=== PATIENT | female | born 1955 | race Caucasian/White ===

== ENCOUNTER → 2016-08-08 | Outpatient (CLI) | payer BC ==
[~2016-08-08] MED LIST: CALC667C4 PO; CHOL100010 PO; LORA-741 PO; OMEP40CA PO; PRAV20TA PO
== END | disposition home or self-care (01) ==
LOC: C.PAPS 13:45
PROVIDERS: ATTEND Obstetrics & Gynecology
DX: Z01.419 Encounter for gynecological examination (general) (routine) without abnormal findings (principal)

== ENCOUNTER → 2016-08-21 | Outpatient (CLI) | payer BC ==
--- NOTE | 2016-08-21 14:09 | MAMMOGRAPHY REPORT ---
BILATERAL DIGITAL SCREENING MAMMOGRAM WITH CAD: 08/21/2016 CLINICAL HISTORY: Routine screening. Patient has no complaints. TECHNIQUE: Bilateral CC, MLO and repeat right CC views were obtained. Current study was also evalua don with a Computer Aided Detection (CAD) system. COMPARISON: Comparison is made to exams dated: 03/03/2013 mammogram - [facility], mammogram, and 09/17/2010 mammogram. BREAST COMPOSITION: The tissue of both breasts is heterogeneously dense, which may obscure small ma sses. FINDINGS: The parenchymal pattern is unchanged. No developing mass, architectural distortion or clu ster of suspicious microcalcifications is seen in either breast. IMPRESSION: ACR BI-RADS CATEGORY 2: BENIGN There is no mammographic evidence of malignancy. A 1 year screening mammogram is recommended. The p atient will receive written notification of the results. Approximately 10% of breast cancers are not detected with mammography. A negative mammographic repor t should not delay biopsy if a clinically suggestive mass is present. Katelyn Salinas M.D. ay/:08/21/2016 12:12:08 Named Account Executive: Ingrid BAKER(Jennifer)(Sara), [facility] letter sent: Normal 1/2 BI-RADS Code: ACR BI-RADS Category 2: Benign
== END | disposition home or self-care (01) ==
LOC: C.MAMM 10:02
PROVIDERS: ATTEND Family Medicine
DX: Z12.31 Encounter for screening mammogram for malignant neoplasm of breast (principal)

== ENCOUNTER 2024-03-26 07:48 | Inpatient (IN) ==
--- NOTE | 2024-03-04 15:39 | PAT Medication Instructions ---
Medication Instructions Date of Service March 04, 2024 Home Medications cholecalciferol (vitamin D3) 25 mcg (1,000 unit) capsule (Vitamin D3) 50 mcg PO DAILY erenumab-aooe 70 mg/mL subcutaneous auto-injector (Aimovig Autoinjector) 0 mg subcut MONTHLY alendronate 70 mg tablet (Fosamax) 70 mg PO WK ezetimibe 10 mg tablet 10 mg PO QAM gabapentin 300 mg capsule 300 mg PO TID propranolol 10 mg tablet 10 mg PO DAILY PRN sumatriptan 5 mg/actuation nasal spray 5 mg intranasal UD PRN Continue as directed propranolol 10 mg tablet 10 mg PO DAILY PRN(if needed) sumatriptan 5 mg/actuation nasal spray 5 mg intranasal UD PRN(if needed) ASK your prescriber and surgeon erenumab-aooe 70 mg/mL subcutaneous auto-injector (Aimovig Autoinjector) 0 mg subcut MONTHLY DO NOT take the morning of surgery cholecalciferol (vitamin D3) 25 mcg (1,000 unit) capsule (Vitamin D3) 50 mcg PO DAILY alendronate 70 mg tablet (Fosamax) 70 mg PO WK Take morning of surgery With a small sip of water, OTHERWISE NOTHING TO EAT OR DRINK AFTER MIDNIGHT: ezetimibe 10 mg tablet 10 mg PO QAM gabapentin 300 mg capsule 300 mg PO TID Take evening before surgery gabapentin 300 mg capsule 300 mg PO TID Other Notes If you have any questions please call us at [phone] or [phone] or [phone] or [phone]
--- NOTE | 2024-03-12 10:55 | Anesthesiology Consultation ---
Date of Service March 12, 2024 Assessment & Plan (1) Encounter for pre-operative examination: - Infectious disease screening: Per assessment on 03/12/24: No known recent infectious disease contacts or current infectious disease symptoms. - Patient acceptable risk for surgery pending surgeon-ordered PCP preop evaluation (Dr. Hobson, 03/22). Chart Review Chart Review: Patient seen in Pre Admission Testing Teaching & Discussion Pre-Anesthesia Teaching/Discussion Notes: Instructed NPO after midnight before surgery,except medications with 15 cc of water. Medication instructions provided according to the PAT guidelines. History Surgery Operation Date: 03/26/24 07:45 Proposed Procedures p L4-S1 Decompression and Fusion with Spinal Cord Monitoring - David Cota, Height/Weight Height: 5 ft Weight: 59.1 kg Allergies Allergy/AdvReac Type Severity Reaction Status Date / Time erythromycin base Allergy Intermediate Rash Verified 03/10/24 13:11 tetracycline Allergy Intermediate Rash Verified 03/10/24 13:11 [id number]-[id number] Reductase AdvReac Severe Muscle Pain Verified 03/03/24 12:13 Inhibitor gabapentin AdvReac Depression, Verified 03/12/24 11:02 angry Medications Home Medications Medication Instructions Recorded Confirmed Last Taken alendronate 70 mg tablet (Fosamax) 70 mg PO WK 03/03/24 03/03/24 Unknown ezetimibe 10 mg tablet 10 mg PO QAM 03/03/24 03/03/24 Unknown propranolol 10 mg tablet 10 mg PO DAILY PRN Tremor(S) 03/03/24 03/03/24 Unknown sumatriptan 5 mg/actuation nasal 5 mg intranasal UD PRN migraines 03/03/24 03/03/24 Unknown spray cholecalciferol (vitamin D3) 50 50 mcg PO DAILY 03/12/24 03/12/24 Unknown mcg (2,000 unit) capsule (Vitamin D3) erenumab-aooe 140 mg/mL 140 mg subcut MONTHLY 03/12/24 03/12/24 Unknown subcutaneous auto-injector (Aimovig Autoinjector) Past Medical History Medical History Chronic back pain High cholesterol History of indigestion Migraine Exercise / Class Metabolic Activity II 4-5 Yardwork/Stairs/Walk up hill Past Family History Family History Other No family history of adverse response to anesthesia Past Surgical History Surgical History Hx of colonoscopy Hx of laminectomy + discectomy L4-L5 (1995, 1997) Past Anesthesia History No Hx of Anesthesia Complications and No Family Hx of Anesthesia Complications History of PONV No Hx of PONV and No Hx of Motion Sickness Social History Smoking Status: Never smoker Do You Dip or Chew Tobacco: No Hx Alcohol Use: Yes alcohol intake frequency: a few times a month Hx Substance Use: No substance use type: does not use Review of Systems Patient denies chest pain, shortness of breath, dyspnea on exertion, fever, chills, cough, wheezing. Physical Exam Vital Signs BP 105/66 P 70 TEMP 97.8 SP02 99%RA RESP 18 Physical Full cervical extension range of motion. Full TMJ range of motion. TMD 2.5 finger breaths (small chin) Mallampati Score III Dentition: missing teeth (sides/molars), + crowns Lungs: clear throughout to auscultation Cardiac: regular rate and rhythm, no murmurs noted Spine: normal Carotid arteries: negative bruit Extremities: no LE edema Lab Results Anesthesia Preop Results Results Anesthesia Widget: WBC 6.03 K/ul (4.8-10.8) 03/12/24 Hgb 12.9 g/dl (12.0-16.0) 03/12/24 Hct 38.5 % (37.0-47.0) 03/12/24 Plt 291 K/uL (130-400) 03/12/24 Na 137 mmol/L (136-145) 03/12/24 K 4.2 mmol/L (3.5-5.1) 03/12/24 Cl 103 mmol/L (98-107) 03/12/24 CO2 30 mmol/L (21-32) 03/12/24 BUN 16 mg/dl (6-23) 03/12/24 Creat 0.91 mg/dl (0.6-1.2) 03/12/24 Glucose Level 82 mg/dl (70-99(Fasting)) 03/12/24 PT 10.3 Seconds (9.0-12.0) 03/12/24 PTT 24 Seconds (21-31) 03/12/24 INR 0.9 (0.9-1.1) 03/12/24 Urine Color Yellow 03/12/24 Urine Appearance Clear (Clear) 03/12/24 Urine pH 6.5 (4.5-7.5) 03/12/24 Urine Specific [place] 1.006 (1.000-1.030) 03/12/24 Urine Protein Negative (Negative) 03/12/24 Urine Glucose (UA) Negative (Negative) 03/12/24 Urine Ketones Negative (Negative) 03/12/24 Urine Blood Negative (Negative) 03/12/24 Urine Nitrite Negative (Negative) 03/12/24 Urine Bilirubin Negative (Negative) 03/12/24 Urine Urobilinogen Negative (Negative) 03/12/24 Urine Leukocyte Esterase Negative (Negative) 03/12/24 Blood Type A Negative 03/12/24 Antibody Screen NEGATIVE 03/12/24 Testing Electrocardiogram Date: 03/12/24 SB at 53bpm. "Otherwise normal ECG" Chest X-Ray Date: 03/12/24 FINDINGS: Lung volumes are normal. Lungs are clear. There is no pneumothorax or pleural effusion. Cardiac size is normal. Mediastinal contours are normal. There is no evidence for pulmonary edema. IMPRESSION: No acute cardiopulmonary findings.
--- OUTSIDE RECORDS SUMMARY | 2024-03-26 08:10 | External Medical Summary | Continuity of Care Document ---
Author Name Unknown Organization [facility] [id number] [place] [id number] Care Team Providers Care Software Consultant Name Role Phone Charles Hobson Primary Care Physician [phone] Encounter [facility] [id number] Date(s): 03/22/24 - 03/22/24 [facility] [address] [facility] [address] [facility] [address] [place] [address] [phone] Encounter Diagnosis Anxiety(Discharge Diagnosis) - 03/22/24 Preoperative evaluation to rule out surgical contraindication(Discharge Diagnosis) - 03/22/24 Discharge Disposition: Home or Self Care Attending Physician: MD Hobson Christopher Allergies, Adverse Reactions, Alerts Substance Criticality Severity Reaction Reaction Severity Status tetracycline RASH Active erythromycin RASH Active gabapentin depression, anger Active Statins (HMG-CoA reductase inhibitors) myalgia Active erythromycin base Unable to assess criticality Moderate RASH Active Assessment and Plan Extracted from: Title:FCM - Preop evaluation, anxiety Author:Her kee MD, Christopher Date:03/22/24 1.Anxiety Chronic condition not at goal/exacerbated/progressive/side effects of treatment Goal: improve sx Data:none Plan: - trial of trazodone 50mg qHS and lorazepam 0.5mg qHS PRN for urgent need - f/u in 6 wks for re-evaluation 2.Preoperative evaluation to rule out surgical contraindication RCRI Class 1 risk for CV complications without previous issues with anesthesia for an intermediate risk procedure as noted above EKG on PAT was NSR at 53 w/o ST/T wave changes CBC, CMP without significant abnormality Immunizations Given and Recorded Vaccine Date Status Refusal Reason influenza virus vaccine, inactivated 07/02/23 Give n influenza virus vaccine, inactivated 04/12/22 Give n influenza virus vaccine, inactivated 04/26/21 Give n influenza virus vaccine, inactivated 03/30/20 Give n influenza virus vaccine, inactivated 05/07/16 Greg rded influenza virus vaccine, inactivated 05/30/15 Give n influenza virus vaccine, inactivated 06/09/14 Give n SARS-CoV-2 (COVID-19) mRNA-vacc - [id number] 06/27/23 Recorded tetanus/diphtheria/pertuss, acel (Tdap) 1 07/08/22 Recorded tetanus/diphtheria/pertuss, acel (Tdap) 06/08/12 G iven SARS-CoV-2 mRNA (Pfizer 12+) bivalent 2 05/16/22 R ecorded zoster vaccine, inactivated 3 04/09/22 Recorded zoster vaccine, inactivated 4 12/12/21 Recorded pneumococcal 20-valent conjugate vaccine 02/18/22 Given SARS-CoV-2 mRNA ([id number]) 5 11/20/21 Recorded SARS-CoV-2 (COVID-19) mRNA-1273 vaccine 6 06/28/21 Recorded SARS-CoV-2 (COVID-19) mRNA BNT-162b2 vax 7 12/04/20 Recorded SARS-CoV-2 (COVID-19) mRNA BNT-162b2 vax 8 11/13/20 Recorded 1Result Comment: 2022-07-17: Historical information-source unspecified 2Result Comment: 2022-06-19: Historical information-source unspecified 3Result Comment: 2022-04-29: Historical information-source unspecified 4Result Comment: 2022-02-07: Historical information-source unspecified 5Result Comment: 2021-12-12: Historical information-source unspecified 6Result Comment: 2021-12-12: Historical information-source unspecified 7Result Comment: 2021-12-12: Historical information-source unspecified 8Result Comment: 2021-12-12: Historical information-source unspecified Medications Aimovig SureClick Autoinjector 140 mg/mL subcutaneous solution Start: 02/09/24 1:58:00 PM EDT, 140 mg =, subQ, qmonth (30 days), Disp# 1 each, Refills: 11, Pharmacy: [facility] Start Date: 02/09/24 Stop Date: 02/03/25 Status: Ordered alendronate 70 mg oral tablet Start: 03/01/24 12:11:00 PM EDT, 1 tab, PO, q7days, Disp# 4 tab, Refills: 11, Pharmacy: [id number] Start Date: 03/01/24 Status: Ordered ezetimibe 10 mg oral tablet Start: 05/06/23 2:44:00 PM EDT, 1 tab, PO, Daily, Disp# 90 tab, Refills: 4, Pharmacy: [id number] Start Date: 05/06/23 Stop Date: 07/29/24 Status: Ordered LORazepam 0.5 mg oral tablet Start: 03/22/24 4:37:00 PM EDT, 1 tab, PO, qhs, Disp# 5 tab, PRN: as needed for anxiety, Pharmacy: [id number] Start Date: 03/22/24 Status: Ordered propranolol 10 mg oral tablet Start: 01/23/23 10:59:00 AM EDT, 1 tab, PO, bid, Disp# 60 tab, PRN: tremor, Pharmacy: [id number] Start Date: 01/23/23 Stop Date: 02/22/23 Status: Ordered SUMAtriptan 5 mg nasal spray Start: 02/07/22 5:40:00 PM EDT, 5 mg =, intranasal, q2h, Disp# 1 each, Refills: 1, may repeat dose in 2 hours if needed, PRN: as needed for migraine headache, Pharmacy: [id number] Start Date: 02/07/22 Status: Ordered traZODone 50 mg oral tablet Start: 03/22/24 4:36:00 PM EDT, 1 tab, PO, qhs, Disp# 90 tab, Refills: 1, Pharmacy: [id number] Start Date: 03/22/24 Stop Date: 09/18/24 Status: Ordered Vitamin D3 2000 intl units oral tablet Start: 06/09/14 7:57:00 AM EST, 1 tab, PO, Daily Start Date: 06/09/14 Status: Ordered Mental Status 03/22/24 Barriers to Learning one year None evide nt Mandatory Health Literacy Documentation Yes Health Literacy Communication Barriers N ever Primary Language [place] Problem List Condition Confirmation Course Effective Dates Status H ealth Status Informant Anxiety Confirmed Active High risk for hip fracture Confirmed Active Cervical radiculopathy Confirmed Active DDD (degenerative disc disease), lumbar Confirmed Active Thoracic degenerative disc disease Confirmed Active History of gestational diabetes Confirmed Active History of lumbar surgery Confirmed Active Dyslipidemia Confirmed Active Left lumbar radiculopathy Confirmed Active Migraine Confirmed Active Osteoporosis 1 Confirmed 06/12/22 Active Prediabetes Confirmed Active Statin intolerance Confirmed Active Tremor Confirmed Active Weight disorder Confirmed Active 1fem. neck: 10 yr hip fx. risk 3.0% Diagnosis Diagnosis Type Effective Dates Health Status Clinical Service Informant Anxiety Discharge Diagnosis 03/22/24 Non-Specified Preoperative evaluation to rule out surgical contraindication Discharge Diagnosis 03/22/24 Non-Specified Procedures Procedure Date Related Diagnosis Body Site Status DXA BONE DENSITY STUDY 1 06/10/22 Completed Plain X-ray of left hand 2 05/09/22 Completed X-ray of thoracic spine 3 02/08/22 Completed Nuclear medicine hepatobilia ry scan with ejection fraction 4 11/15/21 Complet ed Bilateral digital screening mammogram tomosynthesis with synthetic 2D with CAD 5 07/25/21 Completed DEXA - dual energy X-ray absorptiometry 6 06/08/20 Completed Colonoscopy 7 04/25/20 Completed Bilateral Digital Screening Mammogram Tomosynthesis with CAD 8 10/12/[address] of abdomen and pelvis wit h contrast 9 01/09/18 Completed Mammogram 10 08/21/16 Completed PAP test date 11 08/08/16 Complete d Chest x-ray 12 07/21/[address] head without contrast 13 07/21/[address] of abdomen and pelvis wit hout contrast 14 07/21/16 Completed Lumbar Spine X-ray 15 07/21/16 Com pleted Ultrasound scan of abdominal vessels 16 07/11/16 Completed DEXA - Dual energy X-ray magdalene ton absorptiometry 17, 18 02/01/[address] of head 19 06/05/15 Completed Chest x-ray 20 01/14/15 Completed mammo 21 03/03/13 Completed pap 22 03/02/13 Completed Colonoscopy 23 05/11/10 Completed back surgery x2 24 Comple don MRI of thoracic spine 25 Completed tubal ligation Completed 1Impression: AP Spine L1-L3 is 0.895 g/cm2 with a T-score of -2.3 Femur Neck Left is 0.689 g/cm2 with a T-score of -2.5 Femur Neck Right is 0.691 g/cm2 with a T-score of -2.5 Femur Total Left is 0.741 g/cm2 with a T-score of -2.1 Femur Total Right is 0.746 g/cm2 with a T-score of -2.1 with a Z-score of -1.0 2Impression: 1. 2mm well corticated ossicle along the doral aspect of the distal carpal row. This could be correlated with the palpable abnormality 2. No Fracture. No suspicious osseous lesion. 3Osteopenia with no acute osseous pathology Disc space narrowing of the mid-thoracic spine. 4Impression: 1. No evidence for cystic duct obstruction 2. Gallbladder ejection fraction calculated to be 82% 5Impression: ACR BI RADS CATEGORY 2: benign There is no mammographic evidence of malignancy 610 year probability of fracture: Major osteoporotic 12.2%, hip 2.3% 7COLO to cecum, hemorrhoids. repeat colo 5 years. 8Impression: ACR BI RADS CATEGORY 2: Benign There is no mammographic evidence of malignancy. A 1 year screening mammogram is recommended. (10/13/2019) The patient will receive written notification of the results. 9Multiple hypoenhancing foci within the left kidney with mild perinephric infiltration consistent with pyelonephritits. No renal abcess associated proximal left ureteral urothelial thickening and enhancement reflects pyelitis 10wnl repeat 1 yr 11path neg 12No acute process 13No acute intracranial abnormality 141. No bowel wall thickening or obstruction 2. Normal appendix 3. No renal stones or hydronephrosis 15No fracture or subluxation within the lumbar spine. Moderate to severe degenerative disc disease atL4-L5 16negative 17procedure date 02/01/16: AP spine T score -1.8; Dual femur T score: -1.8 18AP SPINE OSTOPENIA DUAL/FEMUR OSTEOPENIA 19No acute intracranial findings. 20AP portable study. No acute findings. 21left breast u/s wnl repeat 1 yr 22wnl repeat 1 yr 23Repeat colonoscopy for screening purposes age 61 Impression: The colon is normal External and internal hemorrhoids [id number] - laminectomy and discectomy - L4-5, repeat again in 1997. 25With and without contrast Impression: 1. No fracture or sublexation wihtin the thoracic spine. 2. Mild degenerative disc disease with a mild kyphotic deformity within the upper to mid thoracic spine. 3. No significant central canal or neural foraminal narrowing. Vital Signs Most recent to oldest [Reference Range]: 1 Patient Weight 57.4 kg (03/22/24 4:20 PM) Heart Rate 72 bpm (03/22/24 4:20 PM) Respiratory Rate 16 br/min (03/22/24 4:20 PM) Blood Pressure 110/74mmHg (03/22/24 4:20 PM) Cuff Pulse Pressure 36 mmHg (03/22/24 4:20 PM) Social History Social History Type Response Tobacco 1 Smoking Status Never smoked cigaret kaushal Sex Female Sex Representation Female (finding) 1none FCM Outpt Note * MD Joce, Charles: PERFORM, MODIFY Event Display: FCM Outpt Note Authored Date: [id number] Chief Complaint Pre-op back surgery 03/26/24. Discuss sleep aid - stress induced insomnia. History of Present Illness Insomnia, acute on chronic - mind keeps racing in thesetting of upcoming surgery - previous episodes of similar she just 'deal with it' and it's more intermittent so it's never been this bad - can't get to sleep AND can't stay asleep AND waking up early without alarm - intermittent chest tightness/confined sensation and worsening tremor, whcih isher chronic anxiety sx - previously treated w/ amitriptyline and buspirone with unknown level of impact or duration Preoperative evaluation Requested by/Surgeon: Minimally invasive L4-5, L5-S1 fusion with spacers and rods, Dr. Cota Planned surgery:intermediate risk (intraperitoneal, intrathoracic, CEA, head/neck, ortho, prostate) Planned anesthesia:general Exercise tolerance:4 METs (climbing 1 flight, walking up hill, level ground @ 4mph, heavy house work) Bleeding tendency/history: none known Substance use per social history in EHR Prior response to anesthesia: None previouslywith general anesthesia Revised Cardiac Risk Index: Score [0] - class 1 risk [_] High Risk Surgery [_] Ischemic Heart Disease [_] History of CHF [_] History of cerebrovascular disease [_] Insulin therapy for DM [_] Pre-op Cr >2 Review of Systems Constitutional: No fever, No chills, No fatigue._ Respiratory: No shortness of breath, No cough, No wheezing. _ Cardiovascular: no lightheadedness/presyncope, No chest pain, No palpitations._ Gastrointestinal: No nausea, No vomiting, No diarrhea, No constipation, No heartburn, No abdominal pain._ Musculoskeletal: No back pain, No neck pain, No joint pain, No muscle pain, No decreased range ofmotion, No trauma._ Skin: No rash, No pruritus, No breakdown._ Neurologic:No abnormal balance, No numbness, No tingling, No headache._ Physical Exam Vitals & Measurements HR:72(Monitored) RR:16 BP:110/74 SpO2:98% WT:57.4kg WT:57.400kg(Dosing) PHQ2 Data(Data Documented on:03/22/2024 16:17) Emotional health assessment NEGATIVE General: _Alert and oriented, No acute distress HEENT: _ Normocephalic, TM clear, Nl gross hearing, moist oral mucosa _ Cardiovascular: _Normal rate, Regular rhythm, No murmur, No gallop. Respiratory: _Lungs are clear to auscultation, Respirations are non-labored, Breath sounds are equal Gastrointestinal: _Soft, Non-tender, Non-distended, Normal bowel sounds. Musculoskeletal: _Normal range of motion,normal strength. Neurologic:Normal sensory, Normal motor function, CN II-XII grossly intact. Integumentary: _Warm, Dry, Swink. Psych: Mood-affect congruence. Reports no SI/HI. Speech is of normal pace and content Assessment/Plan 1.Anxiety Chronic condition not at goal/exacerbated/progressive/side effects of treatment Goal: improve sx Data:none Plan: - trial of trazodone 50mg qHS and lorazepam 0.5mg qHS PRN for urgent need - f/u in 6 wks for re-evaluation 2.Preoperative evaluation to rule out surgical contraindication RCRI Class 1 risk for CV complications without previous issues with anesthesia for an intermediate risk procedure as noted above EKG on PAT was NSR at 53 w/o ST/T wave changes CBC, CMP without significant abnormality Problem List/Past Medical History Ongoing Anxiety Cervical radiculopathy DDD (degenerative disc disease), lumbar Dyslipidemia High risk for hip fracture History of gestational diabetes History of lumbar surgery Left lumbar radiculopathy Migraine Osteoporosis Prediabetes Statin intolerance Thoracic degenerative disc disease Tremor Weight disorder Resolved Anxiety and depression Dermatitis Hemorrhoids, external Hyperlipidemia Internal hemorrhoids Need for Tdap vaccination Procedure/Surgical History DXA BONE DENSITY STUDY| Service Date: 06/10/2022lain X-ray of left hand| Service Date: 05/09/2022X-ray of thoracic spine| Service Date: 02/08/2022Nuclear medicine hepatobiliary scan withejection fraction| Service Date: 11/15/2021ilateral digital screening mammogram tomosynthesis with synthetic 2D with CAD| Service Date: 07/25/2021EXA - dual energy X-ray absorptiometry| Service Date: 06/08/2020Colonoscopy| Service Date: 04/25/2020Bilateral Digital Screening Mammogram Tomosynthesis with CAD| Service Date: 10/12/2018CT of abdomen and pelvis with contrast| Service Date: 01/09/2018Mammogram| Service Date: 08/21/2016PAP test date| Service Date: 08/08/2016Lumbar Spine X-ray| Service Date: 07/21/2016CT of abdomen and pelvis without contrast| Service Date: 07/21/2016CT head without contrast| Service Date: 07/21/2016Chest x-ray| Service Date: 07/21/2016Ultrasound scan of abdominal vessels| Service Date: 07/11/2016DEXA - Dual energy X-ray photon absorptiometry| Service Date: 02/01/2016CT of head| Service Date: 06/05/2015Chest x-ray| Service Date: 01/14/2015mammo| Service Date: 03/03/2013pap| Service Date: 03/02/2013Colonoscopy| Service Date: 05/11/2010tubal ligationback surgery x2MRI of thoracic spine Medications alendronate(alendronate 70 mg oral tablet), 1 tab, PO, q7days cholecalciferol(Vitamin D3 2000 intl units oral tablet), 2000 Int_Unit= 1 tab, PO, Daily erenumab(Aimovig SureClick Autoinjector 140 mg/mL subcutaneous solution), 140 mg, subQ, qmonth (30 days), 11 refills ezetimibe(ezetimibe 10 mg oral tablet), 10 mg= 1 tab, PO, Daily, 4 refills LORazepam(LORazepam 0.5 mg oral tablet), 0.5 mg= 1 tab, PO, qhs, PRN propranolol(propranolol 10 mg oral tablet), 10 mg= 1 tab, PO, bid, PRN SUMAtriptan(SUMAtriptan 5 mg nasal spray), 5 mg, intranasal, q2h, PRN, 1 refills traZODone(traZODone 50 mg oral tablet), 50 mg= 1 tab, PO, qhs, 1 refills Allergies erythromycin base (Moderate)RASH Statins (HMG-CoA reductase inhibitors)myalgia erythromycinRASH gabapentindepression, anger tetracyclineRASH Social History Smoking Status Never smoked cigarettes Alcohol - Low Risk Use:Current Type:Wine - Comments: occa wine intake Employment/School - Low Risk Status:Retired Description:works for [employer] Exercise - Comments: 4 times a wk - gym, lifting, walking. Home/Environment Lives with:Spouse Nutrition/Health Type of diet:Regular Other - Comments: last tetanus - ? more than 10 yrs ago, last mammo - 2011, colo 2009. dexa scan - osteopenia - 5yrs ago. Substance Abuse - Denies Substance Abuse - Comments: none Tobacco - Denies Tobacco Use - Comments: none Family History Aortic aneurysm: Mother. Brain cancer..: Father. Breast cancer: Sister. COPD: Mother. Cervix: Sister. Cigarette smoker: Mother. Dementia: Mother. Depression.: Mother and MGM. Diabetes: Mother. Heart attack: Maternal Uncle and Paternal Uncle. High Blood Pressure: Mother. Lung cancer..: Sister. Osteoporosis: Mother. Health Status Family Member(s) Brother: History is negative Sister: History is negative Brother: History is negative Brother: History is negative Family Member(s) Relationship: Mother, Age: 86 Days, Cause: COVID Relationship: Father, Age: 52 Years, Cause: brain cancer Immunizations Vaccine Date Status influenza virus vaccine, inactivated 07/02/2023 Given SARS-CoV-2 (COVID-19) mRNA-vacc - [id number] 06/27/2023 Recorded tetanus/diphtheria/pertuss, acel (Tdap) 07/08/2022 Recorded Comments : 2022-07-17: Historical information-source unspecified SARS-CoV-2 mRNA (Pfizer 12+) bivalent 05/16/2022 Recorded Comments : 2022-06-19: Historical information-source unspecified influenza virus vaccine, inactivated 04/12/2022 Given zoster vaccine, inactivated 04/09/2022 Recorded Comments : 2022-04-29: Historical information-source unspecified pneumococcal 20-valent conjugate vaccine 02/18/2022 Given zoster vaccine, inactivated 12/12/2021 Recorded Comments : 2022-02-07: Historical information-source unspecified SARS-CoV-2 mRNA ([id number]) 11/20/2021 Recorded Comments : 2021-12-12: Historical information-source unspecified SARS-CoV-2 (COVID-19) mRNA-1273 vaccine 06/28/2021 Recorded Comments : 2021-12-12: Historical information-source unspecified influenza virus vaccine, inactivated 04/26/2021 Given SARS-CoV-2 (COVID-19) mRNA BNT-162b2 vax 12/04/2020 Recorded Comments : 2021-12-12: Historical information-source unspecified SARS-CoV-2 (COVID-19) mRNA BNT-162b2 vax 11/13/2020 Recorded Comments : 2021-12-12: Historical information-source unspecified influenza virus vaccine, inactivated 03/30/2020 Given influenza virus vaccine, inactivated 05/07/2016 Recorded influenza virus vaccine, inactivated 05/30/2015 Given influenza virus vaccine, inactivated 06/09/2014 Given tetanus/diphtheria/pertuss, acel (Tdap) 06/08/2012 Given Recommendations Health Maintenance Pending(in the next year) OverDue Adult Influenza Vaccine due01/25/24and every 1year Due Adult Social Determinants of Health Screening due03/22/24Unknown Frequency Due In Future Medicare Annual Wellness Visit not due until07/02/24and every 1year Satisfied(in the past 1 year) Satisfied Adult Influenza Vaccine on07/02/23.Satisfied by MARIA T Angelo Courtney D Body Mass Index on10/23/23.Satisfied by YUE Colunga Paula Breast Cancer Screening on11/05/23.Satisfied by YUE Harper Lynnae Lipid Screening on06/13/23.Satisfied by [employer] Annual Wellness Visit on07/02/23.Satisfied by MD Hobson Christopher Electronic Signature on File Electronically Reviewed/Signed by: Charles Hobson MD Author Signature Dt/Tm:03/22/2024 04:54 PM Department of Family Medicine Electronically Reviewed/Signed by: Charles Hobson MD Cosigner Signature Dt/Tm: 03/22/2024 04:56PM Department of Family Medicine Patient Care team information Care Team Personnel Name: MD Hobson Christopher Position: Physician - Family Med Member Role: Primary Care Provider Address: [address] [place] [address] [place] Care Team Related Persons Name: CARLI DONAHUE"
[2024-03-26] MEDS ORDERED: ATROPINE SULFATE 0.1 MG/ML 10ML SYR IV PRN (08:53)
[2024-03-26] MEDS ORDERED: HYDROmorphone INJ 1 MG/ML SYRINGE IV PRN (08:53)
[2024-03-26] MEDS ORDERED: ePHEDrine sulfate 50 MG/ML AMP IV PRN (08:53)
[2024-03-26] MEDS ORDERED: ONDANSETRON INJ 2 MG/ML 2 ML VIAL IV PRN (08:53)
--- NOTE | 2024-03-26 08:55 | History & Physical Report ---
Date of Service March 26, 2024 Assessment & Plan (1) Neurogenic claudication due to lumbar spinal stenosis: Plan: L4-S1 decompression and fusion History of Present Illness Chief Complaint: Back and leg pain Primary Care Provider: Charles Hobson MD This is a 68-year-old female presents with chronic persistent back and leg pain after failing course of nonoperative care is here for surgical invention. Allergies Allergy/AdvReac Type Severity Reaction Status Date / Time erythromycin base Allergy Intermediate Rash Verified 03/26/24 08:24 tetracycline Allergy Intermediate Rash Verified 03/26/24 08:24 Gdnrnlp-[id number]-EwL Reductase AdvReac Severe Muscle Pain Verified 03/26/24 08:24 Inhibitor gabapentin AdvReac Depression, Verified 03/26/24 08:24 angry Home Medications Medication Instructions Recorded Confirmed Type alendronate 70 mg tablet (Fosamax) 70 mg PO WK 03/03/24 03/26/24 History ezetimibe 10 mg tablet 10 mg PO QAM 03/03/24 03/26/24 History propranolol 10 mg tablet 10 mg PO DAILY PRN Tremor(S) 03/03/24 03/26/24 History sumatriptan 5 mg/actuation nasal 5 mg intranasal UD PRN migraines 03/03/24 03/26/24 History spray cholecalciferol (vitamin D3) 50 50 mcg PO DAILY 03/12/24 03/26/24 History mcg (2,000 unit) capsule (Vitamin D3) erenumab-aooe 140 mg/mL 140 mg subcut MONTHLY 03/12/24 03/26/24 History subcutaneous auto-injector (Aimovig Autoinjector) trazodone 50 mg tablet 25 mg PO HS 03/23/24 03/26/24 History Past Med/Surg History Problem List (Updated 03/26/24 @ 08:55 by David Cota DO) Neurogenic claudication due to lumbar spinal stenosis Encounter for pre-operative examination Medical History Chronic back pain High cholesterol History of indigestion Migraine Surgical History Hx of colonoscopy Hx of laminectomy + discectomy L4-L5 (1995, 1997) Family History Other No family history of adverse response to anesthesia Social History Smoking Status: Never smoker Second Hand Exposure: No; Do You Dip or Chew Tobacco: No; Tobacco Cessation Education Requested by Patient: No Hx Alcohol Use: Yes Hx Substance Use: No Preferred Language: Venezuelan Communication Ability: Effective Charge Authorizer Required: No Beliefs That Will Affect Care: None Current Living Situation: Spouse Other Information That Helps Us Care for You: No Feels Safe at Home: Yes Safety Concerns: Feels Safe At This Time Assistive Devices: Glasses Physical Exam Physical Exam: The patient is alert and oriented Heart regular in rhythm Lungs clear
--- NOTE | 2024-03-26 08:55 | History & Physical Bridge Note ---
Date of Service March 26, 2024 History & Physical Bridge Note I have examined the patient, reviewed the History & Physical and in the interval since the performance of the History & Physical I have noted the following changes of clinical significance: no changes noted
[2024-03-26] MEDS: LR 60ML/HR IV SCH (09:00)
[2024-03-26] MEDS: LR 15ML/HR IV SCH (09:00)
[2024-03-26] MEDS: GABAPENTIN 300 MG CAP PO SCH (09:00)
[2024-03-26] MEDS: ACETAMINOPHEN 500 MG TAB PO SCH (09:03)
[2024-03-26] MEDS: CeleBREX 200 MG CAP PO SCH (09:03)
[2024-03-26] MEDS ORDERED: MIDAZOLAM HCL 1 MG/ML 2ML VIAL ONE (09:03)
[2024-03-26] MEDS ORDERED: fentaNYL citrate PF 100 MCG/2 ML VIAL ONE ×2 (09:03→11:23)
[2024-03-26] MEDS ORDERED: LIDOCAINE 2% 2 ML VIAL/AMP(20MG/ML) INFIL ONE (09:24)
[2024-03-26] MEDS ORDERED: ONDANSETRON INJ 2 MG/ML 2 ML VIAL ONE (09:24)
[2024-03-26] MEDS ORDERED: diphenhydrAMINE 50 MG/ML VIAL ONE (09:24)
[2024-03-26] MEDS ORDERED: PROPOFOL IV EMULSION 10 MG/ML 20 ML VIAL IV ONE (09:24)
[2024-03-26] MEDS ORDERED: ROCURONIUM BROMIDE 10 MG/ML 5 ML VIAL IV ONE ×3 (09:24→10:04)
[2024-03-26] MEDS ORDERED: GLYCOPYRROLATE 0.2 MG/ML VIAL ONE (09:24)
[2024-03-26] MEDS ORDERED: DEXAMETHASONE SOD INJ 4 MG/ML VIAL ONE (09:24)
[2024-03-26] MEDS: ceFAZolin 2000MG 2,000 MG/15 ML SYR IV SCH (09:34)
[2024-03-26] MEDS: ceFAZolin 330 MG/ML 1 GM VIAL ONE (10:08)
[2024-03-26] MEDS: BUPIVACAINE/EPINEPHRINE 0.25% 1:200,000 30 ML VIAL ONE (10:08)
[2024-03-26] MEDS ORDERED: PHENYLEPHRINE HCL 10 MG/ML VIAL ONE (10:23)
[2024-03-26] MEDS ORDERED: SUGAMMADEX SODIUM 200 MG/2 ML VIAL IV ONE (11:23)
--- NOTE | 2024-03-26 11:33 | Operative Report ---
Post Operative Report Pre & Post Diagnosis Operation Date: 03/26/24 09:20 Pre-Op Diagnosis: (1) Neurogenic claudication due to lumbar spinal stenosis: Post-Op Diagnosis: (1) Neurogenic claudication due to lumbar spinal stenosis: I identified the patient and participated in the time-out.: Yes Procedure Operation Date: 03/26/24 09:20 Actual Procedures #1 revision decompression of bilateral medial facetectomies and foraminotomies L4-L5 L5-S1. #2 posterior spinal fusion L4-L5 L5-S1. #3 please do posterior instrumentation L4-S1. #4 interbody fusion L4-L5 L5-S1. #5 history of spinal 11 x 22 mm at L4-L5 and 11 x 22 mm x 2 L5-S1. #6 placement locally harvested morselized autograft and posterior gutters. #7 placement infuse collagen sponge combined with Koros in the posterior lateral gutters and os design and interbody space. #8 application of versa wrap on the exposed dura. Surgeon David Cota, Boiler Setter Demian Coelho Estimated Blood Loss 50 Findings Consistent with Post-Op Diagnosis Specimens None Indications This is a 68-year-old female who presents publish diagnosis after failing course of nonoperative care she is here for surgical invention. Description of Procedure Patient was met with identified informed sent obtained. Patient was then taken to the operative suite underwent patient placed in prone position on the David table on top of the Bang frame. All bony prominences well-padded eyes inspected to ensure no external pressure placed upon him. This point the lumbar spine was prepped and draped in normal sterile fashion. Sharp dissection with the assistance of Bovie cautery was performed down to and exposing the remaining lamina and transverse processes of L4-L5 and sacral ala bilaterally. For caudal cephalad fashion revision complete laminectomy of L5 was performed including bilateral medial facetectomy and foraminotomies followed by complete laminectomy of L4 including bilateral medial facetectomies and foraminotomies addressing severe spinal stenosis. Pedicle screws were then placed at L4-L5 and S1 levels bilaterally with assistance of fluoroscopy and appropriately sized barbara placed. By way of a transforaminal approach on the left discectomy of L5-S1 was performed endplates curetted subcortical bleeding bone and 11 x 22 mm Spira cage filled with ostia sign tapped in position. Then proceeded the right transforaminal region at L5-S1. Again discectomy performed endplates guarded distal cortical bleeding bone and a second 11 x 22 mm spiral cage filled with loss designed tapped into position. I then proceeded L4-L5 by way of a transforaminal approach on the left complete discectomy performed endplates go to just a cortical bleeding bone and 11 x 22 mm Spira cage with ostia sign tapped incision. The rods were then compressed and locked in final position bilaterally. The transverse processes of L4-L5 and the sacral ala bur to subcortical bleeding bone. Infuse collagen sponge mild course and local autograft placed in the posterior lateral gutters. 15 round LUZ drain inserted. The incision was then closed with 1 Vicryl in the fascia 2-0 Vicryl subcutaneously and 4 Monocryl for final skin closure. Steri-Strips sterile dressing placed. Patient awakened taken to PACU in stable condition. Please note spinal cord monitoring was utilized out the procedure no changes noted. Lastly Demian Harris was present the entire procedure and on the patient positioning complex portions of the surgery and final skin closure. Im ordering 20 grams of Triple [place] Collagen Powder ([employer]Care [id number]) to treat an incision wound that was caused by a spine procedure. The incision is approximately 2 cm(W) x 4 cm(L) into the joint (D) in size and is a full thickness wound. Triple [place] collagen comes in 1 gram packets so 20 packets were ordered. Given the size of the wound, with light to moderate exudate I chose to order a 20 day supply. The patient will be provided instructions for proper application of the collagen wound kit. The patient will be asked to apply the collagen powder daily and then cover it with sterile dressings dispensed. Collagen was selected as I expect the collagen to attract monocytes and fibroblasts, act as a sacrificial substrate for MMPs, and ultimately proved a matrix for tissue and vessel growth. The collagen will act as a primary dressing in this scenario. It is medically necessary for proper healing of these wounds to improve bioavailability and contact with each wound surface, this is also to help prevent infection of wounds and promote healing ultimately leading to a better healing outcome and limit the risk of infection. I attest to the content of the Intraoperative Record and any orders documented therein. Any exceptions are noted below.
[2024-03-26] MEDS: FLOSEAL HEMOSTATIC MATRIX 10ML TOP ONE (11:39)
[2024-03-26] MEDS: fentaNYL citrate PF 100 MCG/2 ML VIAL IV PRN (12:15)
--- NOTE | 2024-03-26 12:37 | Fluoroscopy Report ---
INTRAOPERATIVE RADIOGRAPHS CLINICAL HISTORY: Lumbar spinal fusion surgery. Fluoro time: 26 seconds Ka,r: 11.49 mGy FINDINGS: 2 spot fluoroscopic views of the lumbar spine are presented. There has been discectomy at L 4-L5 and L5-S1 with laminectomy and posterior fusion at L4-S1. Interpedicular screws are present at a ll levels. The orthopedic hardware appears intact. IMPRESSION: Intraoperative images from lumbar spinal fusion surgery as above. Electronically signed by: Simon Mix M.D. 03/26/2024 12:36 PM
[2024-03-26] MEDS ORDERED: METOCLOPRAMIDE HCL INJ 5 MG/ML 2 ML VIAL IV PRN (13:40)
[2024-03-26] MEDS ORDERED: diphenhydrAMINE Capsule 25 MG CAP PO PRN (13:40)
[2024-03-26] MEDS ORDERED: LORazepam 2 MG/1 ML VIAL IV PRN (13:40)
[2024-03-26] MEDS ORDERED: ACETAMINOPHEN 1,000 MG/100 ML VIAL IV PRN (13:40)
[2024-03-26] MEDS ORDERED: HYDROmorphone INJ 0.5 MG/0.5 ML SYR IV PRN (13:40)
[2024-03-26] MEDS ORDERED: PROPRANOLOL HCL 10 MG TAB PO PRN (13:40)
[2024-03-26] MEDS ORDERED: ALUMINUM/MAGNESIUM SUSP 30 ML UDC PO PRN (13:40)
[2024-03-26] MEDS ORDERED: DO NOT ADMINISTER FLU VACCINE PRN (13:40)
[2024-03-26] MEDS ORDERED: DO NOT ADMINISTER PNEUMOCOCCAL VACCINE PRN (13:40)
[2024-03-26] MEDS ORDERED: hydrOXYzine HCl 25 MG TAB PO PRN (13:40)
[2024-03-26] MEDS ORDERED: LORazepam 0.5 MG TAB PO PRN (13:40)
[2024-03-26] MEDS ORDERED: bisacodyL 10 MG SUPP PR PRN (13:40)
[2024-03-26] MEDS ORDERED: FAMOTIDINE 20 MG TAB PO PRN (13:40)
[2024-03-26] MEDS ORDERED: PROMETHAZINE 12.5 MG/50.5 ML BAG IV PRN (13:40)
[2024-03-26] MEDS ORDERED: SOD PHOSPHATE/SOD BIPHOSPHATE ENEMA 132 ML BTL PR PRN (13:40)
[2024-03-26] MEDS ORDERED: ONDANSETRON 4 MG OD TAB PO PRN (13:40)
[2024-03-26] MEDS ORDERED: NALOXONE HCL 0.4 MG/1 ML VIAL/CARP IV PRN (13:40)
[2024-03-26] MEDS ORDERED: ACETAMINOPHEN 500 MG TAB PO PRN (13:40)
--- NOTE | 2024-03-26 13:47 | Anesthesiology Progress Note ---
Date of Service March 26, 2024 Anesthesia Post Procedure Vital Signs Vital Signs: Temp Pulse Pulse Resp BP Pulse Ox O2 Del Method 03/26/24 13:40 36.5 C 78 16 117/72 100 Room Air 03/26/24 13:10 36.4 C L 82 12 113/55 L 100 Nasal Cannula 03/26/24 13:00 78 14 122/59 L 100 Nasal Cannula 03/26/24 12:50 75 13 119/62 100 Oxymask 03/26/24 12:40 91 H 13 126/74 100 Oxymask 03/26/24 12:30 91 H 22 103/59 L 100 Non-rebreather 03/26/24 12:20 92 H 16 121/75 100 Non-rebreather 03/26/24 12:10 85 17 96/67 L 100 Non-rebreather 03/26/24 12:00 66 18 83/47 L 61 L Oxymask 03/26/24 11:53 36.3 C L 55 L 16 115/59 L 99 Oxymask 03/26/24 08:28 36.6 C 65 18 148/86 H 100 Room Air O2 Flow Rate 03/26/24 13:40 03/26/24 13:10 2 03/26/24 13:00 2 03/26/24 12:50 5 03/26/24 12:40 8 03/26/24 12:30 10 03/26/24 12:20 10 03/26/24 12:10 10 03/26/24 12:00 10 03/26/24 11:53 5 03/26/24 08:28 Pain Intensity Medial Back: Pain Intensity: 4 Transfer of Care Handoff Completed per policy Notes Mental Status: alert / awake / arousable Patient Amnestic to Procedure: Yes Nausea / Vomiting: adequately controlled Pain: adequately controlled Airway Patency, RR, SpO2: stable & adequate BP & HR: stable & adequate Hydration State: stable & adequate Anesthetic Complications: no major complications apparent
[2024-03-26] MEDS: HYDROmorphone INJ 1 MG/ML SYRINGE IV PRN (14:12)
[2024-03-26] MEDS: LACTATED RINGER'S 1,000 ML IV SCH (14:13)
--- NOTE | 2024-03-26 14:39 | Hospitalist Consultation ---
Date of Consultation March 26, 2024 Assessment & Plan (1) Neurogenic claudication due to lumbar spinal stenosis: Neurogenic claudication s/p decompression and fusion Complicated, 50 cc of blood loss Pain control, activity, DVT prophylaxis per primary surgical team - Mild hypotensive after gettign narcotics. Drain with <100cc serosanginous output. No tachycardia. No presyncopal sx. Suspet 2/2 sx analgesics. 500cc bolus and supplement IVF given. No evidence of overload. Insomnia May continue trazodone at bedtime. Pt has minimal benefit with 25mg HS, will trial 50mg HS Tremors - Home Propanolol PRN Held (2) Insomnia: History of Present Illness Attending Physician: David Cota, History of Present Illness Sherley Matias is a 68-year-old female with past medical history of degenerative disc disease, hyperlipidemia, lumbar radiculopathy, prediabetes, statin intolerance, and insomnia who presented for minimally invasive L4-L5, L5-S1 sx. We are consulted for postoperative medical management. Preoperatively patient was able to tolerate at least 4 METS without angina, and had no history of ischemic heart disease, CHF, CVA, or insulin use. She did have a history of insomnia and notes that she would get a feeling of chest tightness and tremor when her anxiety was bad however this was not associated with exercise and does not have known cardiac disease. Was recommended to continue trazodone and evening lorazepam and for insomnia, and with respect to her surgery was RCRI class I low risk. She underwent scheduled spinal surgery for neurocardiogenic claudication on 03/26/2024. By report surgery was uncomplicated, 50 cc of blood loss. Discussed with nursing. Overall doing okay. With some postoperative pain but overall doing okay. Transient hypotension after receiving fentanyl for pain control, improved and has fluids running. No acute nursing concerns Seen at bedside. Reports her predominant preop sx was L leg numbness/tingling/pain which has improved, although notes walking made this worse and she has not yet been up from bed Denies fevers, chills, sweats No nausea/vomiting No lightheadeness/dizziness Endorses some low back pain at her surgical site now improved after getting pain medications Endorses history of anxiety/insomnia, would like to trial trzodone 50mg instead of 25. OK with holding off on ativan due to interactions w/ analgesics Medical History: Reviewed Medications: Reviewed Surgical History: Reviewed Family history: Reviewed Allergies: Reviewed Social History: Reviewed Code Status: Full Allergies Allergy/AdvReac Type Severity Reaction Status Date / Time erythromycin base Allergy Intermediate Rash Verified 03/26/24 08:24 tetracycline Allergy Intermediate Rash Verified 03/26/24 08:24 Iaeqine-QCS-OqD Reductase AdvReac Severe Muscle Pain Verified 03/26/24 08:24 Inhibitor gabapentin AdvReac Depression, Verified 03/26/24 08:24 angry Home Medications Medication Instructions Recorded Confirmed Type alendronate 70 mg tablet (Fosamax) 70 mg PO WK 03/03/24 03/26/24 History ezetimibe 10 mg tablet 10 mg PO QAM 03/03/24 03/26/24 History propranolol 10 mg tablet 10 mg PO DAILY PRN Tremor(S) 03/03/24 03/26/24 History sumatriptan 5 mg/actuation nasal 5 mg intranasal UD PRN migraines 03/03/24 03/26/24 History spray cholecalciferol (vitamin D3) 50 50 mcg PO DAILY 03/12/24 03/26/24 History mcg (2,000 unit) capsule (Vitamin D3) erenumab-aooe 140 mg/mL 140 mg subcut MONTHLY 03/12/24 03/26/24 History subcutaneous auto-injector (Aimovig Autoinjector) trazodone 50 mg tablet 25 mg PO HS 03/23/24 03/26/24 History Patient History Medical History History of indigestion Chronic back pain Migraine High cholesterol Surgical History Hx of colonoscopy Hx of laminectomy + discectomy L4-L5 (1995, 1997) Family History Other No family history of adverse response to anesthesia Social History Smoking Status: Never smoker Second Hand Exposure: No; Do You Dip or Chew Tobacco: No; Tobacco Cessation Education Requested by Patient: No Hx Alcohol Use: Yes Hx Substance Use: No Preferred Language: Kazakh Communication Ability: Effective Vice President Of Recruiting Required: No Beliefs That Will Affect Care: None Current Living Situation: Spouse Other Information That Helps Us Care for You: No Feels Safe at Home: Yes Safety Concerns: Feels Safe At This Time Assistive Devices: Glasses Physical Exam Physical Exam: General: A&Ox3. NAD. Cooperative. LUZ SS<100cc HEENT: Atraumatic, normocephalic. Pulm: CTAB A&P. -wheezes, -rales, -rhonchi. Symmetrical chest rise. No increased work of breathing. No respiratory distress. Cardiac: RRR, -mrg. Radial pulses intact and symmetrical. Abdominal: Nontender, nondistended, soft. BS present. Ext: ankle strength/sensation to soft touch grossly intact bilat Results & Data Results & Data Vital Signs (Past 12 Hours) Vital Signs Temp Pulse Pulse Resp BP Pulse Ox O2 Del Method 03/26/24 14:11 36.4 C L 82 16 98/60 L 98 Room Air 03/26/24 13:40 36.5 C 78 16 117/72 100 Room Air 03/26/24 13:10 36.4 C L 82 12 113/55 L 100 Nasal Cannula 03/26/24 13:00 78 14 122/59 L 100 Nasal Cannula 03/26/24 12:50 75 13 119/62 100 Oxymask 03/26/24 12:40 91 H 13 126/74 100 Oxymask 03/26/24 12:30 91 H 22 103/59 L 100 Non-rebreather 03/26/24 12:20 92 H 16 121/75 100 Non-rebreather 03/26/24 12:10 85 17 96/67 L 100 Non-rebreather 03/26/24 12:00 66 18 83/47 L 61 L Oxymask 03/26/24 11:53 36.3 C L 55 L 16 115/59 L 99 Oxymask 03/26/24 08:28 36.6 C 65 18 148/86 H 100 Room Air O2 Flow Rate 03/26/24 14:11 03/26/24 13:40 03/26/24 13:10 2 03/26/24 13:00 2 03/26/24 12:50 5 03/26/24 12:40 8 03/26/24 12:30 10 03/26/24 12:20 10 03/26/24 12:10 10 03/26/24 12:00 10 03/26/24 11:53 5 03/26/24 08:28 PG Care Time/CCT Total # of Minutes Spent Total Time Spent with Patient: Total time spent is greater than 50% in coordination of care (as documented) at patient's floor/unit and/or counseling patient: Coding Level of Care Code 36810 IN/OBS CONSULT LVL 3,45M Diagnoses Neurogenic claudication due to lumbar spinal stenosis M48.062 Insomnia G47.00
[2024-03-26] MEDS: ceFAZolin 1000MG 1,000 MG/7.5 ML SYR IV SCH (17:28)
[2024-03-26] MEDS: DOCUSATE SODIUM/SENNA 50/8.6MG TAB PO SCH (20:24)
[2024-03-27] MEDS: oxyCODONE HCL IR 5 MG TAB (IMMEDIATE RELEASE) PO PRN (02:22)
[2024-03-27] MEDS: traMADol HCL 50 MG TABLET PO PRN (05:58)
[2024-03-27] MEDS: POLYETHYLENE (MIRALAX) 17 GM PACK PO SCH (06:10)
[2024-03-27 06:18] LABS: Basophils # (auto) 0.02 K/uL (0.00-0.20); Basophils % (auto) 0.2 %; Eosinophils # (auto) 0.02 K/uL (0.00-0.50); Eosinophils % (auto) 0.2 %; Hematocrit (blood only) 30.6 % (37.0-47.0); Hemoglobin 10.5 g/dl (12.0-16.0); Immature Granulocytes # (auto) 0.03 K/uL (0.01-0.20); Immature Granulocytes % (auto) 0.3 %; Lymphocytes # (auto) 1.45 K/uL (1.20-3.40); Lymphocytes % (auto) 13.4 %; Mean Corpuscular Hemoglobin 31.1 pg (25.0-34.0); Mean Corpuscular Hgb Conc 34.3 g/dL (32.0-36.0); Mean Corpuscular Volume 90.5 fL (80.0-100.0); Mean Platelet Volume 9.9 fL (9.4-12.4); Monocytes # (auto) 1.02 K/uL (0.11-0.59); Monocytes % (auto) 9.4 %; Neutrophils # (auto) 8.31 K/uL (1.40-6.50); Neutrophils % (auto) 76.5 %; Platelet Count 238 K/uL (130-400); RDW Coefficient of Variation 12.1 % (11.5-14.5); RDW Standard Deviation 40.1 fL (36.4-46.3); Red Blood Count 3.38 M/uL (4.20-5.40); White Blood Count 10.85 K/ul (4.8-10.8)
[2024-03-27 06:28] LABS: BUN Creatinine Ratio 17.1 (10-20); Calcium 8.1 mg/dl (8.6-10.3); Creatinine Clr Calc Pharmacy 57.8 ml/min; Est GFR (African American) 94.1 ml/min; Est GFR (Non-African American) 81.2 ml/min; Potassium 4.4 mmol/L (3.5-5.1)
--- NOTE | 2024-03-27 08:45 | Orthopedic Progress Note ---
Date of Service March 27, 2024 Assessment & Plan (1) Neurogenic claudication due to lumbar spinal stenosis: Plan: This time initiate physical therapy monitor her LUZ output will be discharged home next few days. Admission and Anticipated Discharge Date Admission Date: March 26, 2024 Subjective Pain is controlled left leg pain improved Physical Exam Physical Exam: Patient is currently in bed. She is neurologically intact. Results & Data Vital Signs (Past 12 Hours) Vital Signs Temp Pulse Resp BP Pulse Ox O2 Del Method O2 Flow Rate 03/27/24 07:22 36.3 C L 85 16 96/56 L 99 Room Air 03/27/24 06:10 100 Nasal Cannula 2 03/27/24 04:15 36.5 C 92 H 12 93/55 L 98 Nasal Cannula 2 03/26/24 23:35 36.5 C 74 12 104/57 L 100 Nasal Cannula 2 Queries Orthopedic Spine Acute Posthemorrhagic Anemia: Yes
[2024-03-27] MEDS: ONDANSETRON INJ 2 MG/ML 2 ML VIAL IV PRN (09:05)
[2024-03-27] MEDS: CHOLECALCIFEROL 25 MCG (1000 UNITS) TAB PO SCH (09:31)
[2024-03-27] MEDS: EZETIMIBE 10 MG TAB PO SCH (09:31)
[2024-03-27] MEDS: dexAMETHasone 6 MG in SYRINGE 0 ML IV SCH (09:50)
--- NOTE | 2024-03-27 14:34 | Hospitalist Progress Note ---
Date of Service March 27, 2024 Assessment & Plan (1) Neurogenic claudication due to lumbar spinal stenosis: Plan: Neurogenic claudication s/p decompression and fusion Complicated, 50 cc of blood loss Pain control, activity, DVT prophylaxis per primary surgical team - Mild hypotensive after getting narcotics. Drain with <100cc serosanginous output. No tachycardia. No presyncopal sx. Suspect 2/2 sx analgesics. 500cc bolus and supplement IVF given. No evidence of overload. - Back pain is adequately controlled - narcotics/post op abx/dvt ppx as outlined by primary service, Dr. Cota - She is experiencing n/v with soft BPs - suspect secondary to anesthesia and narcotics, antiemetics ordered PRN and started on NSS @ 100 ml/hr x1 liter (2) Insomnia: Plan: Chronic/stable. May continue trazodone at bedtime. Pt has minimal benefit with 25mg HS, increased 8/30 PM to 50mg (3) Tremors of nervous system: Plan: Chronic - Propranolol remains on hold post op given soft BPs Plan Thank you for allowing us to participate in the care of your patient. Will continue to follow along. AM labs ordered. Plan of care has been d/w Dr. Fall. Admission and Anticipated Discharge Date Admission Date: March 26, 2024 Supervising Physician Co-Signing Physician Notes Attending Attestation - Chart reviewed, care plan d/w OJ Concepcion. I agree w/ the syed components of her documentation. Nabeel Fall MD Tish Lepe is a pleasant 68 yo F who underwent a lumbar decompression and fusion by Dr. Cota on 03/26. She is c/o nausea and several episodes of vomiting about an hour prior to being seen. She was medicated with antiemetics and started on IVF. She is currently feeling better. Still has a catheter in place. She has had BM since surgery. Denies cp or dyspnea, no uncontrolled back pain. Review of Systems 2 Review of Systems: All systems reviewed and are unremarkable except as noted in HPI and below. Denies fever, chills, fatigue, headache, nasal congestion, sore throat, cough, chest pain, shortness of breath, palpitations, orthopnea, PND, abdominal pain, diarrhea, constipation, dysuria, hematuria, frequency, joint pain or swelling, easy bruising or bleeding, skin lesions or rashes. Physical Exam 2 Physical Exam: GENERAL: 68 yo F well-nourished WF. Awake, alert, pleasant. NAD. LUNGS: Clear to auscultation bilaterally. No W/R/R. CARDIOVASCULAR: Regular rate and rhythm. ABDOMEN: Soft, non-tender and non-distended. BS normoactive x 4 quad. : calvo in place draining clear yellow urine EXTREMITIES: No edema. Non-tender. Peripheral pulses +2/4. NEUROLOGIC: A&O x3. No focal neurological deficits. CN II-XII grossly intact. SKIN: Warm, dry, intact. No rashes or lesions. Back incision is dressed. Results & Data Results & Data Vital Signs (Past 12 Hours) Vital Signs Temp Pulse Resp BP Pulse Ox O2 Del Method O2 Flow Rate 03/27/24 07:22 36.3 C L 85 16 96/56 L 99 Room Air 03/27/24 06:10 100 Nasal Cannula 2 03/27/24 04:15 36.5 C 92 H 12 93/55 L 98 Nasal Cannula 2 Laboratory Results 03/27/24 05:41 03/27/24 05:41 PG Care Time/CCT Total # of Minutes Spent Total Time Spent with Patient: Total time spent is greater than 50% in coordination of care (as documented) at patient's floor/unit and/or counseling patient: 35 Coding Level of Care Code 93784 SUB INP/OBS CARE 2/35MIN Diagnoses Neurogenic claudication due to lumbar spinal stenosis M48.062 Insomnia G47.00 Tremors of nervous system R25.1
[2024-03-27] MEDS: SODIUM CHLORIDE 0.9% 1,000 ML IV SCH (14:55)
[2024-03-28 06:31] LABS: Basophils # (auto) 0.01 K/uL (0.00-0.20); Basophils % (auto) 0.1 %; Eosinophils # (auto) 0.01 K/uL (0.00-0.50); Eosinophils % (auto) 0.1 %; Hematocrit (blood only) 30.6 % (37.0-47.0); Hemoglobin 10.2 g/dl (12.0-16.0); Immature Granulocytes # (auto) 0.04 K/uL (0.01-0.20); Immature Granulocytes % (auto) 0.4 %; Lymphocytes # (auto) 1.78 K/uL (1.20-3.40); Lymphocytes % (auto) 17.1 %; Mean Corpuscular Hemoglobin 30.4 pg (25.0-34.0); Mean Corpuscular Hgb Conc 33.3 g/dL (32.0-36.0); Mean Corpuscular Volume 91.1 fL (80.0-100.0); Mean Platelet Volume 10.2 fL (9.4-12.4); Monocytes % (auto) 9.6 %; Neutrophils # (auto) 7.54 K/uL (1.40-6.50); Neutrophils % (auto) 72.7 %; Platelet Count 237 K/uL (130-400); RDW Coefficient of Variation 12.4 % (11.5-14.5); Red Blood Count 3.36 M/uL (4.20-5.40); White Blood Count 10.38 K/ul (4.8-10.8)
[2024-03-28 06:44] LABS: BUN Creatinine Ratio 16.1 (10-20); Calcium 8.4 mg/dl (8.6-10.3); Creatinine Clr Calc Pharmacy 78.4 ml/min; Est GFR (African American) 111.8 ml/min; Est GFR (Non-African American) 96.5 ml/min; Magnesium 1.9 mg/dl (1.7-2.4); Potassium 3.7 mmol/L (3.5-5.1)
--- NOTE | 2024-03-28 10:29 | Orthopedic Progress Note ---
Date of Service March 28, 2024 Assessment & Plan (1) Neurogenic claudication due to lumbar spinal stenosis: Plan: continue PT Admission and Anticipated Discharge Date Admission Date: March 26, 2024 Subjective back pain controlled leg pain improved Physical Exam Physical Exam: patient comfortable neuro intact Results & Data Vital Signs (Past 12 Hours) Vital Signs Temp Pulse Resp BP Pulse Ox O2 Del Method 03/28/24 08:22 Room Air 03/28/24 07:30 36.7 C 85 16 108/54 L 94 Room Air Queries Orthopedic Spine Acute Posthemorrhagic Anemia: Yes
--- NOTE | 2024-03-28 11:56 | Hospitalist Progress Note ---
Date of Service March 28, 2024 Assessment & Plan (1) Neurogenic claudication due to lumbar spinal stenosis: Plan: Neurogenic claudication s/p decompression and fusion Complicated, 50 cc of blood loss Pain control, activity, DVT prophylaxis per primary surgical team - Acute blood loss anemia, secondary to surgery. Hgb stable at 10.2, no indication for blood transfusion at this time. - Mild hypotensive after getting narcotics. Drain with <100cc serosanguineous output. No tachycardia. No presyncopal sx. Suspect 2/2 sx analgesics. 500cc bolus and supplement IVF given. No evidence of overload. - She was experiencing nausea and vomiting with soft BPs - suspect hypotension secondary to anesthesia and narcotics. No presyncopal symptoms, no tachycardia. > Antiemetics ordered PRN and IVF x 1 bag given - Blood pressures now improved and stable - Passing gas, no bowel movement yet. Continue bowel regimen. (2) Insomnia: Plan: Chronic/stable. May continue trazodone at bedtime. Pt has minimal benefit with 25mg HS, increased 8/30 PM to 50mg (3) Tremors of nervous system: Plan: Chronic - Propranolol remains on hold post op given soft BPs Plan Updated at bedside Patient clinically improving today: blood pressures have normalized, no more nausea or vomiting, appetite improved, passing gas, ambulating. Continue bowel regimen to encourage bowel movement. Anticipate that patient will be medically stable for discharge tomorrow, 03/29/24. Hospital medicine will continue to follow along. AM labs ordered. CODE STATUS: Full code Admission and Anticipated Discharge Date Admission Date: March 26, 2024 Supervising Physician Co-Signing Physician Notes Attending Attestation - Chart reviewed, care plan d/w OJ Orr. I agree w/ the syed components of her documentation. Nabeel Fall MD Subjective Patient seen and evaluated in bedside chair with present. She reports that she is doing better today. She notes she had some pain upon initially getting out of bed, but her pain has subsided and is controlled at this time. She had her Dunbar catheter removed today, no problems with urination since. Denies any nausea or vomiting today. She reports that she has an appetite now. She is passing gas, but still no bowel movement yet. Blood pressures are improved today. Denies any lightheadedness or dizziness. She is hopeful for discharge home tomorrow. No additional complaints or concerns at this time. Physical Exam Physical Exam: General: No acute distress, nondiaphoretic, well-developed, well-nourished. Skin: The skin was without rashes, erythema, edema, or bruising. Cardiac: Regular rate and rhythm without murmurs gallops or rubs. Pulm: Clear to auscultation bilaterally without wheezes, rales or rhonchi. No respiratory distress. 94% on room air. Abdominal: Soft, nontender, nondistended. Bowel sounds present. Neuro: A&O x3. No focal neurological deficits. Results & Data Results & Data Vital Signs (Past 12 Hours) Vital Signs Temp Pulse Resp BP Pulse Ox O2 Del Method 03/28/24 08:22 Room Air 03/28/24 07:30 36.7 C 85 16 108/54 L 94 Room Air Laboratory Results Reviewed CBC Reviewed BMP PG Care Time/CCT Total # of Minutes Spent Total Time Spent with Patient: Total time spent is greater than 50% in coordination of care (as documented) at patient's floor/unit and/or counseling patient: Coding Level of Care Code 84917 SUB INP/OBS CARE 2/35MIN Diagnoses Neurogenic claudication due to lumbar spinal stenosis M48.062 Insomnia G47.00 Tremors of nervous system R25.1
[2024-03-28] MEDS: MAGNESIUM HYDROXIDE SUSP 30 ML UDC PO PRN (14:54)
[2024-03-29 06:05] VITALS: PULSE 70; RESP 16; TEMP 97.5; O2SAT 95
[2024-03-29 06:06] LABS: Hematocrit (blood only) 31.5 % (37.0-47.0); Hemoglobin 10.6 g/dl (12.0-16.0); Mean Corpuscular Hemoglobin 30.6 pg (25.0-34.0); Mean Corpuscular Hgb Conc 33.7 g/dL (32.0-36.0); Mean Platelet Volume 9.9 fL (9.4-12.4); Platelet Count 230 K/uL (130-400); RDW Coefficient of Variation 12.4 % (11.5-14.5); Red Blood Count 3.46 M/uL (4.20-5.40); White Blood Count 10.15 K/ul (4.8-10.8)
[2024-03-29 06:21] LABS: Calcium 8.4 mg/dl (8.6-10.3); Est GFR (African American) 108.7 ml/min; Est GFR (Non-African American) 93.8 ml/min
--- NOTE | 2024-03-29 12:43 | Hospitalist Progress Note ---
Date of Service March 29, 2024 Assessment & Plan (1) Neurogenic claudication due to lumbar spinal stenosis: Plan: Neurogenic claudication s/p decompression and fusion Complicated, 50 cc of blood loss Pain control, activity, DVT prophylaxis per primary surgical team - Acute blood loss anemia, secondary to surgery. Hgb stable at 10.2, no indication for blood transfusion at this time. - Mild hypotensive after getting narcotics. Drain with <100cc serosanguineous output. No tachycardia. No presyncopal sx. Suspect 2/2 sx analgesics. 500cc bolus and supplement IVF given. No evidence of overload. - She was experiencing nausea and vomiting with soft BPs - suspect hypotension secondary to anesthesia and narcotics. No presyncopal symptoms, no tachycardia. > Antiemetics ordered PRN and IVF x 1 bag given - Blood pressures now improved and stable - Had bowel movement, passing gas - Patient is medically stable for discharge from hospital medicine's perspective. We will sign off at this time. Please reach out with any questions or concerns. (2) Insomnia: Plan: Chronic/stable. May continue trazodone at bedtime. Pt has minimal benefit with 25mg HS, increased 8/30 PM to 50mg (3) Tremors of nervous system: Plan: Chronic - Propranolol remains on hold post op given soft BPs Plan Updated at bedside Patient is medically stable for discharge from hospital medicine's perspective. We will sign off at this time. Please reach out with any questions or concerns. CODE STATUS: Full code Admission and Anticipated Discharge Date Admission Date: March 26, 2024 Supervising Physician Co-Signing Physician Notes Attending Attestation - Chart reviewed, care plan d/w OJ Orr. I agree w/ the syed components of her documentation. Nabeel Fall MD Subjective Patient seen and evaluated in bedside chair with her present. She reports that she is feeling well today. She is urinating independently since her Dunbar catheter was removed, and she had multiple bowel movements last night. She notes that her pain is well-controlled with her medication. Denies uncontrolled pain, abdominal pain, nausea, vomiting, bowel/bladder problems, chest pain, shortness of breath, lightheadedness, or dizziness. She is eager to be discharged home. No additional complaints or concerns at this time. She is medically stable for discharge from hospital medicine's perspective. We will sign off at this time. Physical Exam Physical Exam: General: No acute distress, nondiaphoretic, well-developed, well-nourished. Skin: The skin was without rashes, erythema, edema, or bruising. Cardiac: Regular rate and rhythm without murmurs gallops or rubs. Pulm: Clear to auscultation bilaterally without wheezes, rales or rhonchi. No respiratory distress. 94% on room air. Abdominal: Soft, nontender, nondistended. Bowel sounds present. Neuro: A&O x3. No focal neurological deficits. Results & Data Results & Data Vital Signs (Past 12 Hours) Vital Signs Temp Pulse Resp BP Pulse Ox O2 Del Method 03/29/24 08:30 Room Air 03/29/24 06:05 36.4 C L 70 16 93/54 L 95 Room Air Laboratory Results Reviewed CBC Reviewed BMP PG Care Time/CCT Total # of Minutes Spent Total Time Spent with Patient: Total time spent is greater than 50% in coordination of care (as documented) at patient's floor/unit and/or counseling patient: Coding Level of Care Code 79039 SUB INP/OBS CARE 2/35MIN Diagnoses Neurogenic claudication due to lumbar spinal stenosis M48.062 Insomnia G47.00 Tremors of nervous system R25.1
--- NOTE | 2024-03-29 12:45 | Discharge Summary ---
Date of Service March 29, 2024 Admission HPI Per Admitting Provider This is a 68-year-old female presents with chronic persistent back and leg pain after failing course of nonoperative care is here for surgical invention. Principal Diagnosis Lumbar spinal stenosis with neurogenic claudication Discharge Data Allergies Allergy/AdvReac Type Severity Reaction Status Date / Time erythromycin base Allergy Intermediate Rash Verified 03/26/24 08:24 tetracycline Allergy Intermediate Rash Verified 03/26/24 08:24 Uulfaam-HMS-JxG Reductase AdvReac Severe Muscle Pain Verified 03/26/24 08:24 Inhibitor gabapentin AdvReac Depression, Verified 03/26/24 08:24 angry Consultations 03/26/24 13:40 Consult Hospitalist Routine Procedures Performed Operation Date: 03/26/24 09:20 Actual Procedures p L4-S1 Decompression and Fusion, Spinal Cord Monitoring(Not Applicable) - David Cota DO Ordered Studies 03/26/24 09:20 FL lumbar spine 2-3V Routine Hospital Course (1) Neurogenic claudication due to lumbar spinal stenosis: Patient went to multilevel lumbar decompression fusion tolerated this well was taken to orthopedic for postoperative. Post ablation she progressed steadily and consistently throughout her stay. LUZ drain decreased appropriate. Exercise testing. Pain well-controlled. Subsidy discharged home. Discharge orders instructions from the chart for further review. Total Time Total Time Spent Total Time Spent (In Minutes): 20 minutes Discharge Plan Discharge Items Patient Disposition: Home - Self-Care Reason For Visit: Lumbar Disc Disease with Radiculopathy, Lumbar Spo Discharge Diagnosis: Lumbar spinal stenosis with neurogenic claudication Activity: As commented below Non-emergency contact: Primary Care Provider Call non-emergency contact if: you have any medication questions Follow-up/Referrals: Charles Hobson MD [Primary Care Provider] - Diet: Regular Addtl Attending Provider Instructions: ACTIVITY RECOMMENDATIONS: SELF CARE INSTRUCTIONS AFTER THORACIC/LUMBAR FUSIONS 1. You may walk to your tolerance. It is good exercise for your legs and back. Expect some back and intermittent leg aches and pains. 2. You may perform "counter-top" level activities (make a sandwich, kiara with a project, etc.). 3. No bending or lifting of more than 10 pounds or back twisting of any nature (roll like a log when turning in bed). 4. You may ride in a car for 20-30 minutes at a time. No driving until after your first visit with your doctor. 5. Frequent changes of position and restricting sitting to 30 minutes at a time will help limit the amount of back spasms and stiffness you may experience. 6. You may discontinue the use of ambulatory aids (cane, crutches, etc.) once your strength and confidence allow. 7. You may machinist mechanic the shower and let water strike your incision when you arrive home at least once daily. Do not take a tub bath, sit in a hot tub or go into a swimming pool until after your first recheck in the office. SPECIAL CARE INSTRUCTIONS: VERY IMPORTANT TO READ AND REVIEW A. Your surgical incision has been closed with a cosmetic suture under the skin that will dissolve in about 6 weeks. In 14 days, you can use a pair of clean scissors and cut the suture that is left outside of the skin at the ends of your incision. 1. The small skin tapes can be removed 7 days after surgery if they have not fallen off by that point. 2. You may keep the wound open to air as much as possible to promote healing after post-op day number 5 unless told otherwise by your doctor. 3. If you think the wound looks like it is becoming infected (redness or worsening drainage) and/or you are experiencing fever, chill or worsening back pain and muscle spasms, contact the office so that we may evaluate you as soon as possible. B. Complications are uncommon, but please contact us if you have any signs or symptoms of: 1. wound infection (fever higher than 102.5 degrees F, redness, separation of wound, drainage, or increasing pain from the incision) 2. blood clots in legs (pain, swelling, redness and warmth in legs) 3. urinary tract infection (fever higher than 102.5 degrees F, burning upon urination or increased frequency of urination) 4. nerve problems (inability to walk on your toes or heels, numbness, loss of bowel or bladder control) 5. any other symptoms that concern you C. Please call the office at if you have any concerns or questions about your operation or recovery. D. No smoking! Smoking drastically decreases the chance of a solid fusion. E. Do not take any anti-inflammatory medications (Indocin, Advil, Motrin, Aspirin, Naprosyn, etc.) as these may inhibit the chance of a solid fusion. Tyl enol is okay to take for pain. MANAGING PAIN AFTER SPINAL SURGERY 1. Narcotic medication is intended for short-term use and will be provided for surgical pain. Surgical pain usually lasts for a period of 4-6 weeks. Narcotic medication includes Percocet, Vicodin, Darvocet, Tylenol #3 or Lortab. 2. Longer-term pain is more appropriately treated with non-narcotic medication such as Tylenol ES. 3. Muscle spasm is not appropriately treated with narcotics. Muscle relaxers such as Soma, Flexeril or Skelaxin can be used along with Tylenol ES. 4. Remember that we all live with some "aches and pains". This is not unusual or uncommon after an injury or as we get older. a. Back pain is expected and may include muscle spasms for 4 to 6 weeks after surgery. The pain should gradually improve. If the pain worsens for no apparent reason, please contact the office. b. Intermittent leg pain may also be experienced and should not be concerned about unless it worsens for no apparent reason. If so, please contact the office. 5. We will provide appropriate medication within the normal guidelines of their prescribed use. We will also be very cautious and aware of potential abuse and extended duration of patients' medication needs. a. Pain medications are for your comfort and to assist with sleep and rest so that the tissue can heal. They are not provided in order to return to normal activity and should not be used through the day. To do so or worsening pain at night can result from ongoing tissue damage and development of tolerance to the prescribed medicine. 6. Please allow 2-3 days to process refills. Prescriptions will not be mailed but must be picked up at the office. FOLLOW UP VISIT: Keep your scheduled follow-up appointment. Any questions, please call the office at . Pending Studies at Discharge: No Stand-Alone Forms: [employer], Smoking Cessation Medications and DC Order Prescriptions: New tramadol 50 mg tablet 50 mg PO Q6H PRN (Reason: pain, moderate) Qty: 30 0RF oxycodone 5 mg tablet 5 mg PO Q6H PRN (Reason: pain) Qty: 30 0RF Continued alendronate [Fosamax] 70 mg Tablet 70 mg PO WK sumatriptan 5 mg/actuation [place],Non-Aerosol 5 mg INTRANASAL UD PRN (Reason: migraines) propranolol 10 mg Tablet 10 mg PO DAILY PRN (Reason: Tremor(S)) ezetimibe 10 mg Tablet 10 mg PO QAM cholecalciferol (vitamin D3) [Vitamin D3] 50 mcg (2,000 unit) Capsule 50 mcg PO DAILY Aimovig Autoinjector 140 mg/mL Auto-Injector 140 mg SUBCUT MONTHLY trazodone 50 mg Tablet 25 mg PO HS Discharge Orders: Discharge Order (Routine); Ordered 03/29/24 Ordered By: David Cota Admission Data Admit Date/Time: 03/26/24 11:36 Attending Provider: David Cota Admit Provider: David Cota Primary Care Provider: Charles Hobson Other Providers: Nabeel Fall
[2024-03-29 13:50] VITALS: BP 108/54
== END 2024-03-29 14:35 | disposition home or self-care (01) | DRG 454 ==
LOC: ASU 07:48 → 3E 11:36

== ENCOUNTER 2024-10-10 12:16 | Inpatient (IN) ==
--- NOTE | 2024-10-10 12:25 | Emergency Department Note ---
Impression & Plan Chest pain, exertional, Hyperlipidemia ED Provider Note NAME: CHERELLE DONAHUE AGE: 68 SEX: F : 1955 ARRIVES VIA: Walk-In INFORMANT: Patient, ED PROVIDER(S): Benjamin Foster MD CHIEF COMPLAINT: Chest pain MEDICAL DECISION MAKING: Patient presents due to concern for chest pain. IV was established and blood work is obtained along with an EKG troponin and chest x-ray. Patient's blood work shows a normal white count H&H and platelet count. The patient's kidney function is unremarkable. Calcium of 10.5 slightly elevated. Initial troponin negative. LFTs and lipase negative. EKG without acute signs of ischemia but the patient's history is concerning. The patient was started on heparin. I did speak with the on-call hospitalist service Dr. Cardenas and the patient was admitted to the medicine service. Critical Care: I have personally spent 45 minutes of critical care time in direct management of this patient. This includes bedside care, interpretation of diagnostic studies, and testing, discussion with consultants, patient, and family members, and other require inpatient management activities. This 45 minutes is in excess of all separately billable procedures. Discussion w/ other healthcare providers: Dr. Cardenas inpatient medicine service Prior /Outside records reviewed: None Differential diagnosis: Cardiac ischemia, aortic dissection, pulmonary embolism, pneumothorax, pneumonia, pericarditis, myocarditis, GERD, cholecystitis, pancreatitis, musculoskeletal, as well as other pathologies were considered. Diagnostics, as interpreted by me: ECG: Normal sinus rhythm, rate of 74, normal intervals, normal axis no obvious ST elevations. No obvious STEMI. Repeat EKG interpreted by myself sinus bradycardia, rate of 55, normal intervals, normal axis no ST elevations. No obvious STEMI. Cardiac monitoring: An order was placed for continuous cardiac monitoring. The monitor shows a rate of 65 with sinus rhythm. Patient was placed on pulse oximetry Medical decision rules: Heart score Imaging studies: I informally interpreted the patient's chest x-ray does not show obvious pneumonia or pneumothorax with formal report to follow. HPI: Patient presents to concern for chest pain. Patient reports that she had some exertional chest pain while walking up an incline on Friday but the seem to go away. The patient states that she got on the elliptical this morning and experienced it for several minutes and several minutes thereafter. The patient did reattempt to get on the elliptical but had worsening pain so they stopped and then presented here. Patient denies any leg swelling or calf pain. Patient denies any prior history of CAD or stent placement. The patient does not have a timber deadener. Patient follows with Dr. Montenegro with [facility]. Patient denies any cough or fever. Patient denies any prior stress testing before. She reports that she has a history of high cholesterol but does not tolerate statins and is on Zetia. Patient is currently chest pain-free. Total duration of the patient's chest pain was about 10 minutes. PAST MEDICAL HISTORY: See Below PAST SURGICAL HISTORY: See Below SOCIAL HISTORY: See Below HOME MEDICATIONS: See Below ALLERGIES: See Below VITALS: See Below PHYSICAL EXAMINATION: GENERAL: NAD, non-toxic. Wearing glasses. EYE EXAM: Normal conjunctiva. PERRL, no anisocoria and EOM's grossly intact w/o pain. OROPHARYNX: Moist mucus membranes, grossly normal dentition. NECK: Trachea midline, no stridor. Supple, no nuchal rigidity, no adenopathy, non-tender. No signs of meningismus. FROM of the neck with good chin to chest and neck extension. LUNGS: Clear to auscultation. Normal chest wall mechanics. HEART: NSR, no MRG. ABDOMEN: Abdomen soft, non-tender, no masses, no rebound or guarding. BACK: No CVA TTP. SKIN: No rashes and no bruising. UPPER EXTREMITIES: Upper extremities are grossly normal. LOWER EXTREMITIES: Grossly normal, no edema. Negative Homans' sign bilaterally. NEURO EXAM: A&O x3, cranial nerves II-XII grossly intact, normal speech, moves all 4 extremities. Past Med/Surg History Problem List (Updated 10/10/24 @ 15:13 by Benjamin Foster MD) Hyperlipidemia (Acute) Chest pain, exertional (Acute) Unstable angina Fusion of spine of lumbar region Tremors of nervous system Insomnia Neurogenic claudication due to lumbar spinal stenosis Medical History History of indigestion Chronic back pain Migraine High cholesterol Surgical History Hx of colonoscopy Hx of laminectomy + discectomy L4-L5 (1995, 1997) Family History Other No family history of adverse response to anesthesia Social History Smoking Status: Never smoker Second Hand Exposure: No; Do You Dip or Chew Tobacco: No; Hx Alcohol Use: Yes Hx Substance Use: No Preferred Language: Mongolian Communication Ability: Effective Picker/Puller Required: No Beliefs That Will Affect Care: None Current Living Situation: Spouse Feels Safe at Home: Yes Assistive Devices: Walker Allergies Allergies Allergy/AdvReac Type Severity Reaction Status Date / Time erythromycin base Allergy Intermediate Rash Verified 03/26/24 08:24 tetracycline Allergy Intermediate Rash Verified 03/26/24 08:24 [id number] Reductase AdvReac Severe Muscle Pain Verified 03/26/24 08:24 Inhibitor gabapentin AdvReac Depression, Verified 03/26/24 08:24 angry Home Meds Home Medications Medication Instructions Recorded Confirmed alendronate 70 mg tablet (Fosamax) 70 mg PO WK 03/03/24 10/10/24 sumatriptan 5 mg/actuation nasal 5 mg intranasal UD PRN migraines 03/03/24 10/10/24 spray cholecalciferol (vitamin D3) 50 5,000 unit PO DAILY 03/12/24 10/10/24 mcg (2,000 unit) capsule (Vitamin D3) erenumab-aooe 140 mg/mL 140 mg subcut MONTHLY 03/12/24 10/10/24 subcutaneous auto-injector (Aimovig Autoinjector) biotin 5,000 mcg sublingual tablet 5,000 mcg sublingual DAILY 10/10/24 10/10/24 ezetimibe 10 mg tablet 10 mg PO DAILY 10/10/24 10/10/24 magnesium 250 mg tablet 250 mg PO DAILY 10/10/24 10/10/24 propranolol 10 mg tablet 10 mg PO DAILY 10/10/24 10/10/24 Results & Data (ED) Vital Signs Vital Signs - 24 hr 10/10/24 12:20 10/10/24 12:25 10/10/24 12:46 Temperature 36.7 C Temperature Source Temporal Artery Scan Pulse Rate 71 82 62 Pulse Rate from SpO2 Sensor Respiratory Rate 20 Blood Pressure 179/82 H Blood Pressure Mean 114 Pulse Oximetry 99 100 Oxygen Delivery Method Room Air Room Air Sepsis Recent Fever Within 48 Hours No Sepsis New/Unexplained Change in Mental Status N/A Sepsis Action Taken by Nursing No Action Required 10/10/24 12:48 10/10/24 12:55 10/10/24 13:00 Temperature Temperature Source Pulse Rate 62 61 Pulse Rate from SpO2 Sensor 62 Respiratory Rate 18 17 Blood Pressure 146/94 H 118/88 126/79 Blood Pressure Mean 111 106 89 Pulse Oximetry 100 100 Oxygen Delivery Method Sepsis Recent Fever Within 48 Hours Sepsis New/Unexplained Change in Mental Status Sepsis Action Taken by Nursing 10/10/24 13:05 10/10/24 13:20 10/10/24 13:25 Temperature Temperature Source Pulse Rate 76 Pulse Rate from SpO2 Sensor Respiratory Rate 22 Blood Pressure 145/77 H 120/69 136/80 Blood Pressure Mean 86 85 110 Pulse Oximetry 97 Oxygen Delivery Method Sepsis Recent Fever Within 48 Hours Sepsis New/Unexplained Change in Mental Status Sepsis Action Taken by Nursing 10/10/24 13:30 10/10/24 13:35 10/10/24 13:40 Temperature Temperature Source Pulse Rate Pulse Rate from SpO2 Sensor Respiratory Rate Blood Pressure 143/78 H 131/84 123/85 Blood Pressure Mean 102 108 93 Pulse Oximetry Oxygen Delivery Method Sepsis Recent Fever Within 48 Hours Sepsis New/Unexplained Change in Mental Status Sepsis Action Taken by Nursing 10/10/24 13:40 10/10/24 13:40 10/10/24 14:00 Temperature Temperature Source Pulse Rate 59 L 59 L Pulse Rate from SpO2 Sensor 58 L Respiratory Rate 19 19 Blood Pressure 123/85 123/85 134/82 Blood Pressure Mean 93 93 99 Pulse Oximetry 100 99 Oxygen Delivery Method Sepsis Recent Fever Within 48 Hours Sepsis New/Unexplained Change in Mental Status Sepsis Action Taken by Nursing 10/10/24 14:00 10/10/24 14:00 10/10/24 14:00 Temperature Temperature Source Pulse Rate Pulse Rate from SpO2 Sensor Respiratory Rate Blood Pressure 134/82 134/82 134/82 Blood Pressure Mean 99 99 99 Pulse Oximetry Oxygen Delivery Method Sepsis Recent Fever Within 48 Hours Sepsis New/Unexplained Change in Mental Status Sepsis Action Taken by Nursing 10/10/24 14:00 10/10/24 14:00 10/10/24 14:18 Temperature Temperature Source Pulse Rate 54 L Pulse Rate from SpO2 Sensor 54 L Respiratory Rate 17 Blood Pressure 134/82 134/82 Blood Pressure Mean 99 99 Pulse Oximetry 99 Oxygen Delivery Method Sepsis Recent Fever Within 48 Hours Sepsis New/Unexplained Change in Mental Status Sepsis Action Taken by Nursing 10/10/24 14:27 10/10/24 14:30 Temperature Temperature Source Pulse Rate 56 L Pulse Rate from SpO2 Sensor 54 L Respiratory Rate 24 Blood Pressure 134/76 Blood Pressure Mean 99 Pulse Oximetry 96 Oxygen Delivery Method Sepsis Recent Fever Within 48 Hours Sepsis New/Unexplained Change in Mental Status Sepsis Action Taken by Longterm Medications Current Medication List: was personally reviewed by me Laboratory Data Attestation: I reviewed the patient's lab results. 10/10/24 12:30 10/10/24 12:30 Lab Results 10/10/24 Range/Units 12:30 WBC 6.73 (4.8-10.8) K/ul RBC 4.55 (4.20-5.40) M/uL Hgb 14.0 (12.0-16.0) g/dl Hct 41.3 (37.0-47.0) % MCV 90.8 (80.0-100.0) fL MCH 30.8 (25.0-34.0) pg MCHC 33.9 (32.0-36.0) g/dL RDW Std Deviation 42.7 (36.4-46.3) fL RDW Coeff of Jessie 13.0 (11.5-14.5) % Plt Count 342 (130-400) K/uL MPV 9.6 (9.4-12.4) fL Immature Gran % (Auto) 0.3 % Neut % (Auto) 57.7 % Lymph % (Auto) 28.7 % [place] % (Auto) 11.1 % Eos % (Auto) 1.5 % Baso % (Auto) 0.7 % Neut # (Auto) 3.88 (1.40-6.50) K/uL Lymph # (Auto) 1.93 (1.20-3.40) K/uL [place] # (Auto) 0.75 H (0.11-0.59) K/uL Eos # (Auto) 0.10 (0.00-0.50) K/uL Baso # (Auto) 0.05 (0.00-0.20) K/uL Immature Gran # (Auto) 0.02 (0.01-0.20) K/uL PT 10.3 (9.0-12.0) Seconds INR 0.9 (0.9-1.1) APTT 23 (21-31) Seconds PTT Ratio 0.9 Sodium 136 (136-145) mmol/L Potassium 4.0 (3.5-5.1) mmol/L Chloride 100 (98-107) mmol/L Carbon Dioxide 32 (21-32) mmol/L Anion Gap 4 (3-11) BUN 13 (6-23) mg/dl Creatinine 0.83 (0.6-1.2) mg/dl Est Cr Clr Drug Dosing 52.3 ml/min eGFR 77.22 BUN/Creatinine Ratio 15.7 (10-20) Glucose 102 H (70-99(Fasting)) mg/dl Calcium 10.5 H (8.6-10.3) mg/dl Total Bilirubin 0.5 (0.2-1.0) mg/dl AST 25 (13-39) U/L ALT 21 (7-52) U/L Alkaline Phosphatase 47 (34-104) U/L Troponin I High Sens 10.3 (0-14) pg/ml Total Protein 7.7 (6.0-8.3) gm/dl Albumin 4.7 (3.4-5.0) gm/dl Globulin 3.0 (2.5-4.0) gm/dl Albumin/Globulin Ratio 1.6 (0.9-2) Lipase 38 (11-82) U/L Administered Medications Heparin Sodium/Dextrose (Heparin 93470 Unit/500 Ml D5w) 25,000 units in 500 mls @ 12 mls/hr IV .Q24H [facility], [facility]; Protocol Stop: 11/09/24 13:29 Last Admin: 10/10/24 13:31 Dose: 600 units/hr, 12 mls/hr Documented By: ZAC Co-signed By: LIZET Discontinued Medications Acetaminophen (Acetaminophen 500 Mg Tab) 1,000 mg PO NOW STA Stop: 10/10/24 12:36 Last Admin: 10/10/24 12:48 Dose: 1,000 mg Documented By: LIZET Aspirin (Aspirin Chew 324 Mg) 324 mg PO NOW STA Stop: 10/10/24 12:36 Last Admin: 10/10/24 12:48 Dose: 324 mg Documented By: LIZET Heparin Sodium/Dextrose (Heparin Iv Adult Wt-Based Low-Dose *No* Initial Bolus Protocol) 1 each IV ONE STA; Protocol Stop: 10/10/24 13:08 Last Admin: 10/10/24 13:41 Dose: 1 each Documented By: ZAC Nitroglycerin (Nitroglycerin Sl 0.4 Mg/Tab Tab) 0.4 mg SL NOW STA Stop: 10/10/24 12:36 Last Admin: 10/10/24 12:48 Dose: 0.4 mg Documented By: LIZET Imaging Data Radiologist's Impression: Chest X-Ray 10/10/24 12:25 HISTORY: Chest pain. TECHNIQUE: Portable AP radiograph of the chest. COMPARISON: Chest radiograph dated 03/12/2024. FINDINGS: conveyor monitor leads overlie the chest. No focal lung consolidation. No pneumothorax or pleural effusion. Normal heart size. Left-sided aortic arch. Midline trachea. No acute osseous abnormality. The included upper abdomen is unremarkable. IMPRESSION: No acute cardiopulmonary findings. Electronically signed by Rolo Montoya 10-10-2024 12:56 PM Discharge Plan Visit Data Chief Complaint: Cardiac Assessment Stated Complaint: CHEST PAIN AND SENSATION IN JAW W/ EXERTION ED Provider: Benjamin Foster Discharge Problem: Chest pain, exertional, Hyperlipidemia Forms Stand Alone Forms: [facility] [employer] Prescriptions Prescriptions: No Action propranolol 10 mg Tablet 10 mg PO DAILY magnesium 250 mg Tablet 250 mg PO DAILY ezetimibe 10 mg Tablet 10 mg PO DAILY biotin 5,000 mcg Tablet, Sublingual 5,000 mcg SUBLINGUAL DAILY alendronate [Fosamax] 70 mg Tablet 70 mg PO WK sumatriptan 5 mg/actuation Caret,Non-Aerosol 5 mg INTRANASAL UD PRN (Reason: migraines) cholecalciferol (vitamin D3) [Vitamin D3] 50 mcg (2,000 unit) Capsule 5,000 unit PO DAILY Aimovig Autoinjector 140 mg/mL Auto-Injector 140 mg SUBCUT MONTHLY Referrals Referrals: Charles Hobson MD [Primary Care Provider] - Discharge Problem: Hyperlipidemia Qualifiers: Hyperlipidemia type: unspecified Qualified Code(s): E78.5 - Hyperlipidemia, unspecified
[2024-10-10] MEDS: ASPIRIN CHEW 324 MG PO STA (12:48)
[2024-10-10] MEDS: NITROGLYCERIN SL 0.4 MG/TAB TAB SL STA (12:48)
[2024-10-10] MEDS: ACETAMINOPHEN 500 MG TAB PO STA (12:48)
[2024-10-10 12:56] LABS: Basophils # (auto) 0.05 K/uL (0.00-0.20); Basophils % (auto) 0.7 %; Eosinophils % (auto) 1.5 %; Hematocrit (blood only) 41.3 % (37.0-47.0); Immature Granulocytes # (auto) 0.02 K/uL (0.01-0.20); Immature Granulocytes % (auto) 0.3 %; Lymphocytes # (auto) 1.93 K/uL (1.20-3.40); Lymphocytes % (auto) 28.7 %; Mean Corpuscular Hemoglobin 30.8 pg (25.0-34.0); Mean Corpuscular Hgb Conc 33.9 g/dL (32.0-36.0); Mean Corpuscular Volume 90.8 fL (80.0-100.0); Mean Platelet Volume 9.6 fL (9.4-12.4); Monocytes # (auto) 0.75 K/uL (0.11-0.59); Monocytes % (auto) 11.1 %; Neutrophils # (auto) 3.88 K/uL (1.40-6.50); Neutrophils % (auto) 57.7 %; Platelet Count 342 K/uL (130-400); RDW Standard Deviation 42.7 fL (36.4-46.3); Red Blood Count 4.55 M/uL (4.20-5.40); White Blood Count 6.73 K/ul (4.8-10.8)
--- NOTE | 2024-10-10 12:56 | XRay Report ---
HISTORY: Chest pain. TECHNIQUE: Portable AP radiograph of the chest. COMPARISON: Chest radiograph dated 03/12/2024. FINDINGS: in processing instructor leads overlie the chest. No focal lung consolidation. No pneumothorax or pleural effusion. Normal heart size. Left-sided aortic arch. Midline trachea. No acute osseous abnormality. The included upper abdomen is unremarkable. IMPRESSION: No acute cardiopulmonary findings. Electronically signed by Rolo Montoya 10-10-2024 12:56 PM
[2024-10-10 13:22] LABS: Albumin Globulin Ratio 1.6 (0.9-2); Albumin Level 4.7 gm/dl (3.4-5.0); BUN Creatinine Ratio 15.7 (10-20); Bilirubin,Total 0.5 mg/dl (0.2-1.0); Calcium 10.5 mg/dl (8.6-10.3); Creatinine Clr Calc Pharmacy 52.3 ml/min; Total Protein 7.7 gm/dl (6.0-8.3)
[2024-10-10 13:29] LABS: Troponin I High Sensitivity 10.3 pg/ml (0-14)
[2024-10-10] MEDS: HEPARIN 25000 UNIT/500 ML D5W 25,000 UNITS/500 ML BAG IV SCH (13:31)
[2024-10-10 13:35] LABS: INR 0.9 (0.9-1.1); Partial Thromboplastin Ratio 0.9; Partial Thromboplastin Time 23 Seconds (21-31); Prothrombin Time 10.3 Seconds (9.0-12.0)
[2024-10-10] MEDS: Heparin IV Adult Wt-Based Low-Dose *NO* INITIAL Bolus Protocol IV STA (13:41)
--- NOTE | 2024-10-10 14:07 | History & Physical Report ---
Date of Service October 10, 2024 Assessment & Plan (1) Unstable angina: Plan: 68-year-old female with a history of hyperlipidemia intolerant to statin medications due to myalgias, lumbar claudication improved s/p decompression and fusion, and no prior history of GA/CAD who presented to the ER with 2 episodes of chest pain brought on by exercise worsening in severity and intensity. Unstable angina No episodes at rest however has had recurrent episodes brought out with less exercise with longer period of recovery, due to worsening symptoms rapidly over 1 week we will characterize as unstable angina and heparinize EKG is sinus without acute ischemic changes on admission High sensitive troponin is normal Following nitro chest pain resolved, has some nearly resolved but still present to jaw discomfort Serial troponins added She is on propranolol however new bradycardia in the low 50s at time bedside assessment raises concern for possible SA node/right heart involvement. Given some jaw pain will cautiously trial 0.5 inch of Nitropaste and monitor closely for hypotension and fluid bolus if needed to maintain preload Will repeat EKG x 1 and then on-call as needed for chest pain If EKG shows ischemic change, troponin within exponential rise, and/or she is not able to get jaw pain resolved and nitro limited by hypotension then will contact interventional cardiology. Cardiology consulted, agree with plan as above. Anticipate likely cardiac catheterization tomorrow if stable overnight Clears, n.p.o. midnight Anesthesia concerns Patient has had hypotensive and apneic responses to sedation and narcotics in the past. Defer narcotic medications at this time and if required should be used with cautious monitoring and dose reduction. Tremors On propranolol p.o. daily, iglesia 52-59 on admission new from prior. ?Due to propranolol and typically good fitness, ddx includes ischemic RCA/SA node involvement Chronic stable issues: Lumbar stenosis: S/p decompression fusion with improvement, no acute or worsening symptoms DVT prophylaxis: Anticoagulated Diet: N.p.o. pending cardiac evaluation, if no cath is dictated then clears until midnight and n.p.o. at midnight CODE STATUS: Full code Disposition: PCU (2) Neurogenic claudication due to lumbar spinal stenosis: (3) Tremors of nervous system: History of Present Illness Primary Care Provider: Charles Hobson MD Sherley is seen with her at [facility]. Was doign well after her spinal surgery last year up until this past week REports she went out for her normal walk on . 15 minutes in developed chest pain and R sided jaw pain. Went away with rest On the elliptical this morning has recurrent chest pain and severe RIGHT jaw pain after only 5 minutes. After a minute of rest started to improve, tried again and chest pain came back worse and lasted 5-10 minutes. Chest pain is gone currently, but jaw sensation persists. Nitro in the ER seemed to help a little with the jaw pain but this hasn't resolved, but chest pain resolved shortly before ER eval Hx of poorly controlled HLD due to statin allergy No hx DM2 No history of TIA/CVA No hsitory of bleeding or blood clots No black or bloody bowel movements Medical History: Reviewed Medications: Reviewed Surgical History: Reviewed Family history: Reviewed Allergies: Reviewed Social History: No tobacco use. Rare social ETOH use. No recreational drug use. Code Status: Full Allergies Allergy/AdvReac Type Severity Reaction Status Date / Time erythromycin base Allergy Intermediate Rash Verified 03/26/24 08:24 tetracycline Allergy Intermediate Rash Verified 03/26/24 08:24 [id number] Reductase AdvReac Severe Muscle Pain Verified 03/26/24 08:24 Inhibitor gabapentin AdvReac Depression, Verified 03/26/24 08:24 angry Home Medications Medication Instructions Recorded Confirmed Type alendronate 70 mg tablet (Fosamax) 70 mg PO WK 03/03/24 10/10/24 History sumatriptan 5 mg/actuation nasal 5 mg intranasal UD PRN migraines 03/03/24 10/10/24 History spray cholecalciferol (vitamin D3) 50 5,000 unit PO DAILY 03/12/24 10/10/24 History mcg (2,000 unit) capsule (Vitamin D3) erenumab-aooe 140 mg/mL 140 mg subcut MONTHLY 03/12/24 10/10/24 History subcutaneous auto-injector (Aimovig Autoinjector) biotin 5,000 mcg sublingual tablet 5,000 mcg sublingual DAILY 10/10/24 10/10/24 History ezetimibe 10 mg tablet 10 mg PO DAILY 10/10/24 10/10/24 History magnesium 250 mg tablet 250 mg PO DAILY 10/10/24 10/10/24 History propranolol 10 mg tablet 10 mg PO DAILY 10/10/24 10/10/24 History Past Med/Surg History Problem List (Updated 10/10/24 @ 15:13 by Benjamin Foster MD) Hyperlipidemia (Acute) Chest pain, exertional (Acute) Unstable angina Fusion of spine of lumbar region Tremors of nervous system Insomnia Neurogenic claudication due to lumbar spinal stenosis Medical History History of indigestion Chronic back pain Migraine High cholesterol Surgical History Hx of colonoscopy Hx of laminectomy + discectomy L4-L5 (1995, 1997) Family History Other No family history of adverse response to anesthesia Social History Smoking Status: Never smoker Second Hand Exposure: No; Do You Dip or Chew Tobacco: No; Hx Alcohol Use: Yes Hx Substance Use: No Preferred Language: Vietnamese Communication Ability: Effective 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 NAD. Cooperative. HEENT: Atraumatic, normocephalic. Vision and hearing grossly intact Pulm: CTAB A&P. -wheezes, -rales, -rhonchi. Symmetrical chest rise. No increased work of breathing. No respiratory distress. Cardiac: RRR, -mrg. Radial pulses intact and symmetrical. Abdominal: Nontender, nondistended, soft. BS present. Ext: warm, dry, no edema Results & Data Results & Data Vital Signs (Past 12 Hours) Vital Signs Temp Pulse Resp BP Pulse Ox O2 Del Method 10/10/24 12:46 62 10/10/24 12:25 82 100 Room Air 10/10/24 12:20 36.7 C 71 20 179/82 H 99 Room Air PG Care Time/CCT Total # of Minutes Spent Total Time Spent with Patient: Total time spent is greater than 50% in coordination of care (as documented) at patient's floor/unit and/or counseling patient: Coding Level of Care Code 89640 INT INP/OBS CARE 3/75MIN Diagnoses Unstable angina I20.0 Neurogenic claudication due to lumbar spinal stenosis M48.062 Tremors of nervous system R25.1
[2024-10-10] MEDS: NITROGLYCERIN 2% OINTMENT 30GM TUBE EXT SCH (15:14)
[2024-10-10] MEDS ORDERED: NITROGLYCERIN SL 0.4 MG/TAB TAB SL PRN (18:53)
[2024-10-10 20:40] LABS: ANTI-Xa, UFH(UnfractionatedHep 0.24 IU/ml (0.3-0.7)
[2024-10-10] MEDS: MELATONIN 3 MG TAB PO PRN (23:29)
[2024-10-11 03:08] LABS: Basophils # (auto) 0.06 K/uL (0.00-0.20); Eosinophils # (auto) 0.11 K/uL (0.00-0.50); Eosinophils % (auto) 1.8 %; Hematocrit (blood only) 35.8 % (37.0-47.0); Hemoglobin 12.1 g/dl (12.0-16.0); Immature Granulocytes # (auto) 0.01 K/uL (0.01-0.20); Immature Granulocytes % (auto) 0.2 %; Lymphocytes # (auto) 2.74 K/uL (1.20-3.40); Mean Corpuscular Hemoglobin 30.3 pg (25.0-34.0); Mean Corpuscular Hgb Conc 33.8 g/dL (32.0-36.0); Mean Corpuscular Volume 89.7 fL (80.0-100.0); Mean Platelet Volume 9.4 fL (9.4-12.4); Monocytes # (auto) 0.58 K/uL (0.11-0.59); Monocytes % (auto) 9.7 %; Neutrophils # (auto) 2.46 K/uL (1.40-6.50); Neutrophils % (auto) 41.3 %; Platelet Count 282 K/uL (130-400); Red Blood Count 3.99 M/uL (4.20-5.40); White Blood Count 5.96 K/ul (4.8-10.8)
[2024-10-11 03:23] LABS: BUN Creatinine Ratio 11.7 (10-20); Calcium 9.1 mg/dl (8.6-10.3); Creatinine Clr Calc Pharmacy 55.5 ml/min; Potassium 3.9 mmol/L (3.5-5.1)
[2024-10-11 03:24] LABS: BUN Creatinine Ratio 10.8 (10-20); Calcium 9.1 mg/dl (8.6-10.3); Creatinine Clr Calc Pharmacy 51.5 ml/min
[2024-10-11 06:19] LABS: Troponin I High Sensitivity 2.6 pg/ml (0-14)
[2024-10-11] MEDS: ACETAMINOPHEN 325 MG TAB PO PRN (09:28)
[2024-10-11] MEDS: PROPRANOLOL HCL 10 MG TAB PO SCH (10:30)
[2024-10-11] MEDS: ASPIRIN 81 MG ECTAB PO SCH (10:30)
[2024-10-11] MEDS ORDERED: traMADol HCL 50 MG TABLET PO PRN (10:51)
[2024-10-11] MEDS: traMADol HCL 50 MG TABLET PO STA (11:22)
--- NOTE | 2024-10-11 12:19 | Hospitalist Progress Note ---
Date of Service October 11, 2024 Assessment & Plan (1) Unstable angina: Plan: Currently asymptomatic except for a nitrate induced headache. No acute EKG changes. Telemetry. Cardiology consultation is pending. She is n.p.o. anticipating the need for left heart catheterization. (2) Neurogenic claudication due to lumbar spinal stenosis: Plan: Supportive care. Pain control measures. She has a past history of surgical intervention with decompression and fusion (3) Tremors of nervous system: Plan: Chronic benign essential tremor. Continue propranolol (4) Statin intolerance: Plan: She is unable to take statin therapy due to previous issues with tolerating these medications Plan To be determined by cardiology consultation. Admission and Anticipated Discharge Date Admission Date: October 10, 2024 Subjective Alert and oriented. is at the bedside. She has a headache from the topical nitrates. Tramadol as needed has been ordered. She is awaiting cardiology consultation and is currently n.p.o. anticipating the need for left heart catheterization for what appears to be unstable angina. Her EKGs do not reveal any acute changes and maximum troponin so far is 24. She is now also on aspirin and her propranolol has been restarted. Review of Systems 2 Review of Systems: Constitutionalno fever or chills ENTno blurred vision, no double vision, no epistaxis, no sore throat Respiratoryno cough, no wheezing, no shortness of breath Cardiacno palpitations,no syncope. No recurrent chest discomfort while at rest Nan nausea, vomiting, diarrhea, melena, hematochezia GUno urinary retention, no urinary incontinence, no dysuria, no hematuria Musculoskeletalno joint pain, no muscle tenderness Skinno bruising, no rashes, no pruritus Neurono isolated weakness, no paresthesia, no weakness Psychno depression, no anxiety Physical Exam 2 Physical Exam: General-alert and oriented x3, no fever, no chills HEENT-head atraumatic and normocephalic, pupils equal and reactive to light, extraocular muscles intact Neck-no lymphadenopathy or thyromegaly, trachea midline Chest-clear to auscultation. No rales, wheezing or rhonchi Cardiac-regular rate and rhythm, normal S1 and S2 Abdomen-normal bowel sounds, no hepatosplenomegaly Extremities-no cyanosis, clubbing, or edema Neuro-cranial nerves II through XII intact, motor and sensory function within normal limits, strength symmetrical, no focal deficits Psych-normal affect, normal mood Results & Data Results & Data Vital Signs (Past 12 Hours) Vital Signs Temp Pulse Resp BP Pulse Ox O2 Del Method 10/11/24 10:54 36.2 C L 56 L 20 127/78 98 Room Air 10/11/24 07:37 36.3 C L 58 L 17 113/73 96 Room Air 10/11/24 03:27 36.6 C 87 16 126/84 96 Room Air Laboratory Results 10/11/24 02:49 10/11/24 02:49 PG Care Time/CCT Total # of Minutes Spent Total Time Spent with Patient: Total time spent is greater than 50% in coordination of care (as documented) at patient's floor/unit and/or counseling patient: Coding Level of Care Code 87405 SUB INP/OBS CARE 3/50MIN Diagnoses Unstable angina I20.0 Neurogenic claudication due to lumbar spinal stenosis M48.062 Tremors of nervous system R25.1 Statin intolerance Z78.9
--- NOTE | 2024-10-11 12:38 | XCELERA ---
[id number] \\[email or web address]\[id number]
--- NOTE | 2024-10-11 13:22 | Pre Anesthesia Assessment ---
Date of Service October 11, 2024 Pre Sedation Assessment Vital Signs Temp Pulse Pulse Resp BP BP Pulse Ox 10/11/24 13:11 68 10/11/24 12:59 55 L 14 154/88 H 100 10/11/24 10:54 36.2 C L 56 L 20 127/78 98 10/11/24 07:37 36.3 C L 58 L 17 113/73 96 10/11/24 03:27 36.6 C 87 16 126/84 96 10/10/24 23:13 36.4 C L 79 18 127/83 98 10/10/24 23:00 70 10/10/24 22:00 60 10/10/24 21:00 10/10/24 19:54 37.2 C 52 L 18 128/86 98 10/10/24 18:54 36.6 C 74 16 148/84 H 99 10/10/24 18:15 10/10/24 18:04 69 10/10/24 17:32 76 18 126/81 100 10/10/24 17:00 66 21 123/102 H 100 10/10/24 16:50 53 L 10/10/24 16:30 59 L 20 98 10/10/24 16:00 64 18 109/65 100 10/10/24 15:33 64 30 H 121/74 98 10/10/24 15:00 61 19 138/80 100 10/10/24 14:30 134/76 10/10/24 14:30 134/76 10/10/24 14:27 56 L 24 96 10/10/24 14:18 54 L 17 99 10/10/24 14:00 134/82 10/10/24 14:00 134/82 10/10/24 14:00 134/82 10/10/24 14:00 134/82 10/10/24 14:00 134/82 10/10/24 14:00 59 L 19 134/82 99 10/10/24 13:40 59 L 19 123/85 100 10/10/24 13:40 123/85 10/10/24 13:40 123/85 10/10/24 13:35 131/84 10/10/24 13:30 143/78 H 10/10/24 13:25 136/80 O2 Del Method 10/11/24 13:11 10/11/24 12:59 Room Air 10/11/24 10:54 Room Air 10/11/24 07:37 Room Air 10/11/24 03:27 Room Air 10/10/24 23:13 Room Air 10/10/24 23:00 10/10/24 22:00 10/10/24 21:00 Room Air 10/10/24 19:54 Room Air 10/10/24 18:54 Room Air 10/10/24 18:15 Room Air 10/10/24 18:04 10/10/24 17:32 Room Air 10/10/24 17:00 10/10/24 16:50 10/10/24 16:30 10/10/24 16:00 10/10/24 15:33 10/10/24 15:00 10/10/24 14:30 10/10/24 14:30 10/10/24 14:27 10/10/24 14:18 10/10/24 14:00 10/10/24 14:00 10/10/24 14:00 10/10/24 14:00 10/10/24 14:00 10/10/24 14:00 10/10/24 13:40 10/10/24 13:40 10/10/24 13:40 10/10/24 13:35 10/10/24 13:30 10/10/24 13:25 Cardiovascular RRR, no murmur, no edema Respiratory normal respiratory effort, lungs clear to auscultation Pre-Sedation Airway Assessment Smoking Status: Never smoker Hx Sleep Apnea: No (pt snores per ) Short, Thick Neck: No Thyromental Distance: > or= 3.5 Finger Breadths Oral Cavity: + WNL Mallampati Class: II ASA: ASA3 NPO Status Date of Last Intake of Fluids: 10/11/24 Time of Last Intake of Fluids: 12:00 Last Oral Intake of Fluids Comment: sips with meds Date of Last Intake of Solid Food: 10/10/24 Time of Last Intake of Solid Foods: 20:00 Notes The planned sedation has been discussed with the patient. Informed Consent was obtained. I have identified the patient, determined the appropriateness of sedation and have assessed the patient immediately prior to the procedure. All medicine(s) and interventions are by my order.
--- NOTE | 2024-10-11 13:32 | Cardiology Consultation ---
Date of Consultation October 11, 2024 Assessment & Plan (1) Chest pain, exertional: Typical exertional symptoms (CCS class III). Subtle abnormalities on resting echo and a single modestly elevated troponin. We will proceed with definitive evaluation by coronary angiography plus or minus PCI as indicated. Further recommendations pending results. (2) Hyperlipidemia: Patient is intermediate risk at most in the absence of CAD and diabetes. However, if this study demonstrates CAD then she will be considered high risk. I do not have her original lipid panel which prompted the attempts at statin. However, she may have familial hypercholesterolemia. I suspect she will be a P CSK9 inhibitor candidate which we will discuss after cath is completed. History of Present Illness Reason for Consultation: Chest pain Attending Physician: Bruce Oden MD History of Present Illness 68-year-old female without diabetes, hypertension, or prior cardiac disease presented to the emergency department after developing chest tightness radiating up into her jaw occurring while she was exercising and relieved after about 10 minutes. She had a similar episode while walking as is her usual custom for exercise. Prior to that, she had no anginal type symptoms. She does not smoke. Exercises regularly. Unfortunately, she has dyslipidemia and has been intolerant to statins. Her EKG performed here did not show any acute ischemic changes. First cardiac troponin was normal, second cardiac troponin was sligh tly above normal and then the third cardiac troponin was normal. She underwent echocardiogram and this demonstrated subtle borderline to mild hypokinesis consistent with a mid to distal LAD territory event. She never has her chest pain at rest. Decision was made to proceed with definitive evaluation by coronary angiography rather than stress testing (which would be known definitive). Patient denies any syncope, near syncope, orthopnea, PND, racing heartbeat, palpitations, or edema. Strong family history of premature coronary disease. Risk benefits and alternatives to cardiac cath were discussed in detail with the patient. Risks include but are not limited to; , stroke, [place], renal failure, adverse drug reaction, infection, bleed, radiation exposure and need for emergent surgery. Lack of onsite cardiac surgical backup and plan for air evacuation in the event of emergency was discussed. Patient's questions were answered in full. She voiced understanding and wished to proceed with catheterization plus or minus PCI as indicated. The consent is signed and in the chart. Allergies Allergy/AdvReac Type Severity Reaction Status Date / Time erythromycin base Allergy Intermediate Rash Verified 03/26/24 08:24 tetracycline Allergy Intermediate Rash Verified 03/26/24 08:24 Qfmxcke-QLB-QqI Reductase AdvReac Severe Muscle Pain Verified 03/26/24 08:24 Inhibitor gabapentin AdvReac Depression, Verified 03/26/24 08:24 angry Home Medications Medication Instructions Recorded Confirmed Type alendronate 70 mg tablet (Fosamax) 70 mg PO WK 03/03/24 10/10/24 History sumatriptan 5 mg/actuation nasal 5 mg intranasal UD PRN migraines 03/03/24 10/10/24 History spray cholecalciferol (vitamin D3) 50 5,000 unit PO DAILY 03/12/24 10/10/24 History mcg (2,000 unit) capsule (Vitamin D3) erenumab-aooe 140 mg/mL 140 mg subcut MONTHLY 03/12/24 10/10/24 History subcutaneous auto-injector (Aimovig Autoinjector) biotin 5,000 mcg sublingual tablet 5,000 mcg sublingual DAILY 10/10/24 10/10/24 History ezetimibe 10 mg tablet 10 mg PO DAILY 10/10/24 10/10/24 History magnesium 250 mg tablet 250 mg PO DAILY 10/10/24 10/10/24 History propranolol 10 mg tablet 10 mg PO DAILY 10/10/24 10/10/24 History Patient History Medical History History of indigestion Chronic back pain Migraine High cholesterol Surgical History Hx of colonoscopy Hx of laminectomy + discectomy L4-L5 (1995, 1997) Family History Other No family history of adverse response to anesthesia Social History Smoking Status: Never smoker Second Hand Exposure: No; Do You Dip or Chew Tobacco: No; Tobacco Cessation Education Requested by Patient: No Hx Alcohol Use: No Hx Substance Use: No Preferred Language: [place] Communication Ability: Effective 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 Sclera are anicteric. ENMT: Oral mucosa is pink moist and intact Neck: No JVD or bruits Respiratory: Clear to auscultation bilaterally. No wheezing, rhonchi, or rales. Cardiovascular: Regular rate and rhythm. No gallops, rubs, or murmurs. No edema. Musculoskeletal: no cyanosis or clubbing, extremities motor strength 5/5 Neurologic: Cognition is intact. Speech is fluent. No focal deficits. Psychiatric: A+Ox3, euthymic affect Results & Data Vital Signs (Past 12 Hours) Vital Signs Temp Pulse Pulse Resp BP Pulse Ox O2 Del Method 10/11/24 13:11 68 10/11/24 12:59 55 L 14 154/88 H 100 Room Air 10/11/24 10:54 36.2 C L 56 L 20 127/78 98 Room Air 10/11/24 07:37 36.3 C L 58 L 17 113/73 96 Room Air 10/11/24 03:27 36.6 C 87 16 126/84 96 Room Air PG Care Time/CCT Total # of Minutes Spent Total Time Spent with Patient: Total time spent is greater than 50% in coordination of care (as documented) at patient's floor/unit and/or counseling patient: Coding Level of Care Code 83299 IN/OBS CONSULT LVL 4,60M Diagnoses Chest pain, exertional R07.9 Hyperlipidemia E78.5 Hyperlipidemia type: unspecified (2) Hyperlipidemia Hyperlipidemia type: unspecified Qualified Code(s): E78.5 - Hyperlipidemia, unspecified
[2024-10-11] MEDS: niCARdipine 2,000 MCG/20 ML SYR ONE (13:41)
[2024-10-11] MEDS: NITROGLYCERIN/D5W 100MCG/ML 20ML SYR ONE (13:42)
--- NOTE | 2024-10-11 14:00 | Electrocardiogram Report ---
Test Reason : Blood Pressure : */* mmHG Vent. Rate : 74 BPM Atrial Rate : 74 BPM P-R Int : 166 ms QRS Dur : 90 ms QT Int : 350 ms P-R-T Axes : 66 -5 67 degrees QTcB Int : 388 ms Normal sinus rhythm Normal ECG When compared with ECG of 12-Mar-2024 11:10, No significant change was found Confirmed by Charles Friedman ([id number]) on 10/11/2024 1:59:48 PM Referred By: REFERRED SELF Confirmed By: Charles Friedman
--- NOTE | 2024-10-11 14:02 | Electrocardiogram Report ---
Test Reason : Blood Pressure : */* mmHG Vent. Rate : 55 BPM Atrial Rate : 55 BPM P-R Int : 174 ms QRS Dur : 78 ms QT Int : 410 ms P-R-T Axes : 60 22 53 degrees QTcB Int : 392 ms Sinus bradycardia Otherwise normal ECG When compared with ECG of 10-Oct-2024 12:27, (unconfirmed) No significant change was found Confirmed by Charles Friedman ([id number]) on 10/11/2024 2:02:41 PM Referred By: REFERRED SELF Confirmed By: Charles Friedman
[2024-10-11] MEDS: fentaNYL citrate PF 100 MCG/2 ML VIAL ONE (14:18)
[2024-10-11] MEDS: MIDAZOLAM HCL 1 MG/ML 2ML VIAL ONE ×2 (14:19)
[2024-10-11] MEDS: OPTIRAY 350 ONE (14:19)
[2024-10-11] MEDS: TICAGRELOR 90 MG TAB ONE (14:23)
[2024-10-11] MEDS: HEPARIN (PORCINE) 1000 UNIT/ML 10 ML (CATH LAB USE ONLY) ONE ×2 (14:23→15:42)
--- NOTE | 2024-10-11 14:27 | Post Anesthesia Assessment ---
Date of Service October 11, 2024 Post Sedation Assessment Vital Signs Temp Pulse Pulse Resp BP BP Pulse Ox 10/11/24 13:11 68 10/11/24 12:59 55 L 14 154/88 H 100 10/11/24 10:54 36.2 C L 56 L 20 127/78 98 10/11/24 07:37 36.3 C L 58 L 17 113/73 96 10/11/24 03:27 36.6 C 87 16 126/84 96 10/10/24 23:13 36.4 C L 79 18 127/83 98 10/10/24 23:00 70 10/10/24 22:00 60 10/10/24 21:00 10/10/24 19:54 37.2 C 52 L 18 128/86 98 10/10/24 18:54 36.6 C 74 16 148/84 H 99 10/10/24 18:15 10/10/24 18:04 69 10/10/24 17:32 76 18 126/81 100 10/10/24 17:00 66 21 123/102 H 100 10/10/24 16:50 53 L 10/10/24 16:30 59 L 20 98 10/10/24 16:00 64 18 109/65 100 10/10/24 15:33 64 30 H 121/74 98 10/10/24 15:00 61 19 138/80 100 10/10/24 14:30 134/76 10/10/24 14:30 134/76 O2 Del Method 10/11/24 13:11 10/11/24 12:59 Room Air 10/11/24 10:54 Room Air 10/11/24 07:37 Room Air 10/11/24 03:27 Room Air 10/10/24 23:13 Room Air 10/10/24 23:00 10/10/24 22:00 10/10/24 21:00 Room Air 10/10/24 19:54 Room Air 10/10/24 18:54 Room Air 10/10/24 18:15 Room Air 10/10/24 18:04 10/10/24 17:32 Room Air 10/10/24 17:00 10/10/24 16:50 10/10/24 16:30 10/10/24 16:00 10/10/24 15:33 10/10/24 15:00 10/10/24 14:30 10/10/24 14:30 Recovery Score Activity: Moves 4 extremities Respiration: Deep Breath/Cough Circulation: +/-20% PreAnes Value Consciousness: Fully Awake Oxygen Saturation: > 92% On Room Air Discharge Sedation Level of Care: Fast Track Phase II Post Sedation Plan On clinical assessment, the patient appears to have tolerated the sedation without complications. Patient is recovering as anticipated. Patient will continue to be monitored by nursing and may be discharged when sedation discharge criteria are met per below protocol. Upon Completions of procedure up to 15 minutes continue every 5 minute vital signs and the P.A.R. score; then discharge to a Phase I or Fast Track to Phase II per the following guidelines: * Discharge Patient to appropriate Phase II area if PAR is 8 or greater or return to pre- procedure baseline. The post - procedure orders will be as directed. * If PAR score is less than 8 or not return to pre-procedure baseline then patient will follow Phase I monitoring till PAR is reached for Phase II. The Phase I may be done in procedure room or may call to secure a Phase I area. * If naloxone or flumazenil are used for reversal, hold in Phase I for continued monitoring from when last reversal dose was given for a minimum of 60 minutes or longer pending the nurse and/or physician discretion of patient condition before discharge to Phase II. Please call the Sedation Physician to re-evaluate and complete post-note for discharge to Phase II area. Do NOT discharge from procedure sedation or Phase 1 until post- sedation evaluation note is complete by procedure /sedation MD Sedation Discharge Instructions to be given to the patient at discharge to home.
--- NOTE | 2024-10-11 16:41 | Electrocardiogram Report ---
Test Reason : Blood Pressure : */* mmHG Vent. Rate : 59 BPM Atrial Rate : 59 BPM P-R Int : 188 ms QRS Dur : 76 ms QT Int : 428 ms P-R-T Axes : 56 -18 38 degrees QTcB Int : 423 ms Sinus bradycardia Abnormal ECG When compared with ECG of 10-Oct-2024 14:59, No significant change was found Confirmed by Charles Friedman ([id number]) on 10/11/2024 4:41:39 PM Referred By: REFERRED SELF Confirmed By: Charles Friedman
--- NOTE | 2024-10-11 16:55 | Cardiac Catheterization ---
[facility] Data: Digital X Ray Service Engineer Cardiac Status Clinical evaluation leading to the procedure CAD Presenation: Unstable angina Anginal Classification: CCS III Heart Failure: No Cardiogenic Shock within 24 Hours: No Cardiac Arrest within 24 Hours: No Imaging Studies Past 6 Months: Yes Stress Studies Past 6 Months: No Coronary Anatomy Dominant: Right Left Main (% Stenosis): Normal LAD (% Stenosis): Proximal (99%) D1 (% Stenosis): Normal Circumflex (% Stenosis): Normal OM1 (% Stenosis): Normal OM2 (% Stenosis): Normal L PL1 (% Stenosis): Normal RCA (% Stenosis): Proximal (40%) R PDA (% Stenosis): Normal Diagnostic Physicians Name: Denis Romo MD, PhD Closure Device Percutaneous Entry Location: Radial Closure Device: Radial Band Recommendations: Medical Therapy and/or Counseling and PCI without planned CABG PCI Indication: Angina despite med therapy and Unstable Angina Lesion Segment Name: Proximal LAD Culprit Artery: Yes Stenosis Prior to Rx (%): 99 Chronic Total Occlusion: No Pre-Procedure FERNANDA Flow: 2 Previously Treated Lesion: No Lesion Complexity: Non-High/Non-C Lesion Length (mm): 12 Thrombus Present: No Bifurcation Lesion: No Guidewire Across Lesion: Yes Intraprocedure Events Significant Disection: No Perforation: No Cardiac Cath Procedure Full Procedure Date October 11, 2024 Pre-Procedure Diagnosis Pre-Procedure Diagnosis: Acute Coronary Syndrome AUC Score AUC Score: 07 Post-Procedure Diagnosis Post-Procedure Diagnosis: Severe CAD and Successful PCI Procedure(s) Performed Procedure(s) Performed: Coronary Angiography and Drug Eluting Stent Perinatal Specialist Denis Romo MD, PhD Estimated Blood Loss Estimated Blood Loss: 5 cc Medication(s) Medication(s): Fentanyl, Heparin, Lidocaine 1%, Nicardipine, Nitroglycerin and Versed Summary of Findings Brief description: Patient was brought to the cardiac catheterization suite where she was shaved an d prepped in a sterile fashion. Sedated using IV Versed and fentanyl. Soft tissues of the right wrist were anesthetized using 2 mL of 1% Xylocaine. The right radial artery was accessed with a modified Seldinger technique and a 6 Swazi radial artery glide sheath was placed. Patient was provided anticoagulation with IV heparin and antispasmodics including nicardipine and nitroglycerin. All catheters were advanced and exchanged over a 0.035 J-tip wire. Left coronary angiography in orthogonal views with a 5 Swazi [place] 4 diagnostic catheter. Right coronary angiography in orthogonal with a 5 Swazi [place] 4 diagnostic catheter. Diagnostic catheters were removed. Decision was made to proceed with PCI of the proximal LAD. ACT was checked and additional heparin was provided throughout the case as needed to maintain therapeutic anticoagulation. A 6 Swazi EBU 3.0 guide catheter was used to engage the left main coronary. A BMW universal guidewire was advanced through the guide catheter and positioned distally in the LAD. Lesion was predilated with a 2.5 x 12 mm trek balloon at 8 genia followed by a second inflation to 12 genia. A 2.75 x 15 mm Roldan drug-eluting stent was advanced and positioned across the lesion where it was deployed at 12 genia. A second inflation was performed at 14 genia. A 3.0 x 8 mm NC Ramos balloon was then used to post dilate the stent initially at 12 genia with a second inflation up to 17 genia. Balloon was removed and concert promoter angiography performed. The guidewire was removed and final angiographic evaluation was performed. Guide catheter was then removed over the J-wire. The radial artery sheath was removed and hemostasis obtained using a TR band. Patient remained hemodynamically stable and asymptomatic. She was returned to the recovery area. This ended the case. She did receive 180 mg of Brilinta prior to leaving the Digital X Ray Service Engineer. Coronary angiography findings: CGF-cqrau-urxfpsf vessel bifurcating into LAD and circumflex. No disease. NVJ-cdriq-[id number] and transapical. Gives a small D1 and then a larger longer D2. Proximally there is a focal up to 99% stenosis. FERNANDA II flow. This is the culprit for her chest discomfort. IIm-slgsi-oenxirz and nondominant. Travels in the AV groove giving a large branching OM1, small OM 2, and a branching posterior lateral distally. No angiographically evident disease in the circumflex or its branches. RCA-this is medium to large caliber and dominant. Proximally there is a napkin ring lesion of less than 40%. Beyond this, the RCA continues without disease and then becomes the large and long PDA. This vessel has no disease. PCI of LAD-0% residual stenosis post PCI No evidence of dissection or perforation post PCI FERNANDA-3 flow post PCI Summary: 1. Severe proximal LAD stenosis is the culprit for her symptoms and correlates to findings on the echo. 2. Successful PCI with implantation of a drug-eluting stent to the proximal LAD. 3. Dual antiplatelet therapy with aspirin and Brilinta for 1 to 2 years. Guideline directed medical therapy for secondary prevention including; low-dose aspirin, high intensity statin (statin intolerant so PCSK9 inhibitor suggested), beta-jenniffer, plus or minus LIZET inhibitor/ARB. Hemodynamics Rest Ao:: 116/68 mmHg Final Ao: 1 1 1/57 mmHg LV: Not performed Recommendations Recommendations: Medical Therapy and/or Counseling and PCI without planned CABG Radiation Exposure (mGy) 682 mGy, fluoroscopy time 10.3 minutes Contrast (mls) 155 mL Anesthesia Fentanyl 75 mcg, Versed 2 mg IV. Start time 1344, end time 1421 Procedural Complication(s) None Disposition Digital X Ray Service Engineer Holding/Recovery I attest to the content of the Intraoperative Record and any orders documented therein. Any exceptions are noted below. [facility] Card Cath Procedure Codes Cardiac Catheterization Procedure 1: Cardiovascular Cath Procedures: 11996 Coronaries Moderate Sedation Procedure 1: Sedation/Anesthesia: 50984 Mod Sedation by the same physician;Init15 Min Child Age 5 & Up (Initial 15 minutes, start time 1344) Procedure 2: Sedation/Anesthesia: 85179 Mod Sedation by the same physician; Ea [id number] Minutes (Additional 21 minutes, end time 1421) Stenting Procedure 1: Cardiovascular Stent Procedures: 71563 Perc transcatheter placement of intracoronary stent(s), with ang (LAD) PG Care Time/CCT Total # of Minutes Spent Total Time Spent with Patient: Total time spent is greater than 50% in coordination of care (as documented) at patient's floor/unit and/or counseling patient:
[2024-10-11] MEDS: TICAGRELOR 90 MG TAB PO SCH (19:57)
[2024-10-12 02:36] VITALS: RESP 18
[2024-10-12 07:41] LABS: Basophils # (auto) 0.06 K/uL (0.00-0.20); Basophils % (auto) 0.9 %; Eosinophils # (auto) 0.13 K/uL (0.00-0.50); Eosinophils % (auto) 1.9 %; Hematocrit (blood only) 37.6 % (37.0-47.0); Hemoglobin 12.8 g/dl (12.0-16.0); Immature Granulocytes # (auto) 0.02 K/uL (0.01-0.20); Immature Granulocytes % (auto) 0.3 %; Lymphocytes # (auto) 1.16 K/uL (1.20-3.40); Lymphocytes % (auto) 17.1 %; Mean Corpuscular Hemoglobin 30.3 pg (25.0-34.0); Mean Corpuscular Volume 88.9 fL (80.0-100.0); Mean Platelet Volume 9.4 fL (9.4-12.4); Monocytes # (auto) 0.61 K/uL (0.11-0.59); Neutrophils % (auto) 70.8 %; Platelet Count 277 K/uL (130-400); RDW Coefficient of Variation 13.1 % (11.5-14.5); RDW Standard Deviation 42.5 fL (36.4-46.3); Red Blood Count 4.23 M/uL (4.20-5.40); White Blood Count 6.78 K/ul (4.8-10.8)
[2024-10-12 07:54] LABS: Calcium 9.3 mg/dl (8.6-10.3); Creatinine Clr Calc Pharmacy 55.5 ml/min; Potassium 3.9 mmol/L (3.5-5.1)
[2024-10-12 08:34] VITALS: O2SAT 96
[2024-10-12 11:31] VITALS: BP 117/76; PULSE 59; TEMP 97.7
--- NOTE | 2024-10-12 11:48 | Discharge Summary ---
Discharge Summary Date of Service October 12, 2024 Principal Dx & Hospital Course #1 = Principal Diagnosis (1) Unstable angina: She remains asymptomatic. Headache has resolved. No acute EKG changes. Telemetry. Cardiology consultation and recommendations appreciated. She is status post left heart catheterization with placement of a drug-eluting stent in the proximal LAD. She has been instructed on proper use of sublingual nitroglycerin should she have any recurrent chest discomfort. (2) Neurogenic claudication due to lumbar spinal stenosis: Supportive care. Pain control measures. She has a past history of surgical in tervention with decompression and fusion (3) Tremors of nervous system: Chronic benign essential tremor. Continue propranolol (4) Statin intolerance: She is unable to take statin therapy due to previous issues with tolerating these medications. She will remain on Zetia for the time being Plan Home today, October 12 Admission HPI Per Admitting Provider Sherley is seen with her at beside. Was doign well after her spinal surgery last year up until this past week REports she went out for her normal walk on . 15 minutes in developed chest pain and R sided jaw pain. Went away with rest On the elliptical this morning has recurrent chest pain and severe RIGHT jaw pain after only 5 minutes. After a minute of rest started to improve, tried again and chest pain came back worse and lasted 5-10 minutes. Chest pain is gone currently, but jaw sensation persists. Nitro in the ER seemed to help a little with the jaw pain but this hasn't resolved, but chest pain resolved shortly before ER eval Hx of poorly controlled HLD due to statin allergy No hx DM2 No history of TIA/CVA No hsitory of bleeding or blood clots No black or bloody bowel movements Medical History: Reviewed Medications: Reviewed Surgical History: Reviewed Family history: Reviewed Allergies: Reviewed Social History: No tobacco use. Rare social ETOH use. No recreational drug use. Code Status: Full Discharge Exam General-alert and oriented x3, no fever, no chills HEENT-head atraumatic and normocephalic, pupils equal and reactive to light, extraocular muscles intact Neck-no lymphadenopathy or thyromegaly, trachea midline Chest-clear to auscultation. No rales, wheezing or rhonchi Cardiac-regular rate and rhythm, normal S1 and S2 Abdomen-normal bowel sounds, no hepatosplenomegaly Extremities-no cyanosis, clubbing, or edema Neuro-cranial nerves II through XII intact, motor and sensory function within normal limits, strength symmetrical, no focal deficits Psych-normal affect, normal mood Discharge Plan Discharge Items Patient Disposition: Home - Self-Care Reason For Visit: CHEST PAIN Discharge Diagnosis: Unstable angina, placement of drug-eluting stent in proximal LAD Activity: As commented below Activity Comment: Avoid exercising or overexertion Non-emergency contact: Primary Care Provider and Senior Sales Executive Call non-emergency contact if: you have any medication questions and your symptoms worsen Follow-up/Referrals: Charles Hobson MD [Primary Care Provider] - Diet: Regular and Heart Healthy Addtl Attending Provider Instructions: Take medications as directed. Use nitroglycerin under your tongue as needed for any recurrent chest pain as directed. See your primary care provider soon as possible. He will refer you to a pyroglazer for follow-up. No exercise or overexertion until cleared by cardiology Pending Studies at Discharge: No Stand-Alone Forms: My [employer], Smoking Cessation Medications and DC Order Prescriptions: New Brilinta 90 mg Tablet 90 mg PO BID Qty: 60 0RF aspirin 81 mg Tablet,Delayed Release (Dr/Ec) 81 mg PO QAM Qty: 0 0RF Continued propranolol 10 mg Tablet 10 mg PO DAILY magnesium 250 mg Tablet 250 mg PO DAILY ezetimibe 10 mg Tablet 10 mg PO DAILY biotin 5,000 mcg Tablet, Sublingual 5,000 mcg SUBLINGUAL DAILY alendronate [Fosamax] 70 mg Tablet 70 mg PO WK sumatriptan 5 mg/actuation [place],Non-Aerosol 5 mg INTRANASAL UD PRN (Reason: migraines) cholecalciferol (vitamin D3) [Vitamin D3] 50 mcg (2,000 unit) Capsule 5,000 unit PO DAILY Aimovig Autoinjector 140 mg/mL Auto-Injector 140 mg SUBCUT MONTHLY Discharge Orders: Discharge Order (Routine); Ordered 10/12/24 Ordered By: Bruce Oden Admission Data Admit Date/Time: 10/10/24 14:32 Attending Provider: Bruce Oden Admit Provider: Teofilo Cardenas Primary Care Provider: Charles Hobson Other Providers: Teofilo Cardenas; Guillermo Montes Hospital Stay Data Consultations 10/10/24 14:00 ED Decision to Admit Stat 10/10/24 18:53 Consult Cardiology Routine Procedures Performed Operation Date: 10/11/24 13:30 Actual Procedures p Cineradiography w/Routine Exam - Denis Romo MD, PhD p Cath, Coronaries ONLY (no LV) - Denis Romo MD, PhD s Drug Eluting Stent SGl Vessel - Denis Romo MD, PhD Diagnostic Imagining Performed 10/11/24 12:16 CL Cath Imgs for PACS use only Stat Pending Results Patient Have Any Pending Studies at Discharge: No Discharge Instructions Given to Patient (Per Discharging Provider) Take medications as directed. Use nitroglycerin under your tongue as needed for any recurrent chest pain as directed. See your primary care provider soon as possible. He will refer you to a pyroglazer for follow-up. No exercise or overexertion until cleared by cardiology Total Time Total Time Spent Total Time Spent (In Minutes): 45 minutes Coding Level of Care Code 24083 INP/OBS DISCH >30 MIN Diagnoses Unstable angina I20.0 Neurogenic claudication due to lumbar spinal stenosis M48.062 Tremors of nervous system R25.1 Statin intolerance Z78.9
== END 2024-10-12 13:32 | disposition home or self-care (01) | DRG 322 ==
LOC: ED 12:16 → 2S 14:32 → SUATTDRO 14:32 → 2S 17:32
PROC: CLB.CCO (2024-10-11 13:30)